=== PATIENT | female | born 1975 | race Caucasian/White ===

== ENCOUNTER 2017-01-30 13:41 | Emergency (ER) | payer SELFPAY ==
[2017-01-30 13:46] VITALS: BMI 20.9
[2017-01-30 14:20] LABS: BASOPHILS # (AUTO) 0.1 X10^3/uL (0.0-0.1); BASOPHILS % (AUTO) 1.2 % (0.2-1.0); EOSINOPHILS # (AUTO) 0.2 x10^3/uL (0.0-0.2); EOSINOPHILS % (AUTO) 1.5 % (0.9-2.9); HEMATOCRIT 47.1 % (36.0-47.0); HEMOGLOBIN 16.2 g/dL (12.0-16.0); LYMPHOCYTES % (AUTO) 19.8 % (21.0-51.0); MEAN CORPUSCULAR HGB CONC 34.4 g/dL (33.0-35.0); MEAN CORPUSCULAR VOLUME 87.1 fL (80.0-100.0); MEAN PLATELET VOLUME 7.6 fL (7.4-11.0); MONOCYTES # (AUTO) 0.6 x10^3/uL (0.3-0.8); MONOCYTES % (AUTO) 5.8 % (0.0-13.0); NEUTROPHILS # (AUTO) 7.2 x10^3/uL (2.2-4.8); NEUTROPHILS % (AUTO) 71.7 % (42.0-75.0); PLATELET COUNT 408 X10^3/uL (150.0-450.0); RED BLOOD COUNT 5.41 X10^6/uL (3.5-5.4); RED CELL DISTRIBUTION WIDTH 12.7 % (11.6-16.5)
[2017-01-30 14:32] LABS: ALANINE AMINOTRANSFERASE 18 Units/L (12-78); ALBUMIN 3.7 g/dL (3.4-5.0); ALKALINE PHOSPHATASE 69 Units/L (46-116); ASPARTATE AMINO TRANSFERASE 13 Units/L (15-37); BLOOD UREA NITROGEN 9 mg/dL (7-18); CALCIUM 9.9 mg/dL (8.5-10.1); CARBON DIOXIDE 31.2 mmol/L (21-32); CHLORIDE 105 mmol/L (98-107); COR NA(FOR HYPERGLY) 144 mmol/L (136-145); CREATININE 1.16 mg/dL (0.55-1.02); GLUCOSE 116 mg/dL (65-99); SODIUM 144 mmol/L (136-145); TOTAL PROTEIN 7.7 g/dL (6.4-8.2); eGFR BLACK RACES > 60 (>60); eGFR NON BLACK RACES 55 (>60)
[2017-01-30 14:34] LABS: BLOOD ALCOHOL < 3 mg/dL (0-19.9)
[2017-01-30 14:38] LABS: SALICYLATE < 2.8 mg/dL (2.8-20)
[2017-01-30 15:07] LABS: BILIRUBIN,URINE NEGATIVE (NEGATIVE); BLOOD/HEMOGLOBIN,URINE 1+ (NEGATIVE); GLUCOSE, URINE NEGATIVE (NEGATIVE); KETONES,URINE NEGATIVE (NEGATIVE); LEUKOCYTE ESTERASE ,URINE 1+ (NEGATIVE); NITRITES,URINE NEGATIVE (NEGATIVE); PH,URINE 6.5 (5.0 - 8.0); PROTEIN,URINE NEGATIVE (NEGATIVE); UROBILINOGEN,URINE NORMAL (NORMAL)
[2017-01-30 15:21] LABS: APPEARANCE,URINE SLIGHTLY HAZY (CLEAR); COLOR,URINE PALE YELLOW (YELLOW)
[2017-01-30 15:22] LABS: BACTERIA,URINE TRACE /HPF (NEGATIVE); RBC,URINE 0-2 /HPF (NEGATIVE); SQUAMOUS EPITHELIAL CELL,UR FEW /HPF (NEGATIVE)
[2017-01-30] MEDS ORDERED: LEVAQUIN TAB 750 MG PO SCH (16:00)
[2017-01-30] MEDS ORDERED: LEVAQUIN TAB 500 MG ONE (16:02)
[2017-01-30] MEDS ORDERED: LEVAQUIN TAB 250 MG ONE (16:02)
[2017-01-30 16:07] VITALS: BP 116/69
--- NOTE | 2017-01-30 16:10 | DR.GENAD ---
HPI - PCP Primary Care Physician: NFD - Complaint/Symptoms Chief Complaint Doctors Comments: Patient stated that she took some of her mothers medication in attempt to kill herself. She stated that she has done this in the past. Chief Complaint:: PATIENT STATED THAT SHE OVERDOSED ON SOME PILLS ABOUT 4 HOURS AGO SHE THINKS THAT IS MIGHT HAVE BEEN BLOOD PRESSURE MEDICINE. PATIENT STATED THAT SHE HAS BEEN GONE WITH SOME EUGENE THE LAST WEEK AND SHE DOESN'T KNOW WHAT HE HAS BEEN GIVING HER. 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 - Family History History of Family Medical Conditions: Yes Family Medical History: Hypertension - Social History Does patient currently use any type of tobacco product: Yes Have you used tobacco products in the last 12 months: Yes Type of Tobacco Use: Cigarettes Does any household member use tobacco: No Alcohol Use: None Do you use any recreational Drugs:: Yes (OPIATES, BENZO, METH) Lives With: Family Lives Where: Home - infectious screening In the last 2 months have you had wt loss of >10#?: NO Have you had fever, night sweats or hemotysis?: No Have you traveled outside the country in the last 6 months?: No Isolation: Standard ROS - Review of Systems Constitutional: No Symptoms Reported Eyes: No Symptoms Reported ENTM: No Symptoms Reported Respiratoy: No Symptoms Reported Cardiovascular: No Symptoms Reported Gastrointestinal/Abdominal: No Symptoms Reported Genitourinary: No Symptoms Reported Neurological: No Symptoms Reported Musculoskeletal: No Symptoms Reported Integumentary: No Symptoms Reported Hematologic/Lymphatic: No Symptoms Reported Endocrine: No Symptoms Reported Psychiatric: No Symptoms Reported All Other Systems: Reviewed and Negative PE - Vital Signs Vitals: Temperature 98.2 F Pulse Rate [Right Brachial] 88 Pulse Rate 105 Respiratory Rate 16 Blood Pressure [Left Arm] 129/81 Blood Pressure [Right Arm] 116/69 Blood Pressure 95/69 O2 Sat by Pulse Oximetry 100 - General Limitations: No Limitations General Appearance: Alert, In No Apparent Distress - Head Head Exam: Normal Inspection, Atraumatic - Eyes Eye exam: Normal Appearance, PERRL, EOMI - ENT ENT Exam: Normal Exam, Normal Oropharynx External Ear Exam: Normal External Inspection TM/Canal Exam: Bilateral Normal Nose Exam: Normal Nose Exam Mouth Exam: Normal Inspection Throat Exam: Normal Inspection - Neck Neck Exam: Normal Inspection, Full ROM - Chest Chest Inspection: Normal Inspection, Symmetric Chest Wall Rise - Respiratory Respiratory Exam: Normal Lung Sounds Bilat Respiratory Exam: Bilateral Clear to Auscultation - Cardiovascular Cardiovascular Exam: Regular Rate, Normal Rhythm - Abdominal Exam Abdominal Exam: Normal Inspection, Normal Bowel Sounds, Soft Abdominal Tenderness: negative: RUQ, RLQ, LUQ, LLQ, Epigastrium, Suprapubic, Diffuse, Mild, Moderate, Severe, Other - Extremities Extremities Exam: Normal Inspection, Full ROM - Back Back Exam: Normal Inspection - Neurologic Neurological Exam: Alert, Oriented X3, CN II-XII Intact - Psychiatric Psychiatric Exam: Flat Affect - Skin Skin Exam: Warm, Dry, Intact Course - Treatment Treatment: Mental Health was called to evaluate patient s/p medical clearance. Patient refused to left Mental Health termite control representative evaluate her. Patient left AMA after mental health left. - Reevaluation 1st: Unchanged ROR - Labs Reviewed Result Diagrams: 01/30/17 14:14 01/30/17 14:14 Laboratory: WBC 10.0 X10^3/uL (3.6-10.0) 01/30/17 14:14 RBC 5.41 X10^6/uL (3.5-5.4) H 01/30/17 14:14 Hgb 16.2 g/dL (12.0-16.0) H 01/30/17 14:14 Hct 47.1 % (36.0-47.0) H 01/30/17 14:14 MCV 87.1 fL (80.0-100.0) 01/30/17 14:14 MCH 30.0 pg (27.0-34.0) 01/30/17 14:14 MCHC 34.4 g/dL (33.0-35.0) 01/30/17 14:14 RDW 12.7 % (11.6-16.5) 01/30/17 14:14 Plt Count 408 X10^3/uL (150.0-450.0) 01/30/17 14:14 MPV 7.6 fL (7.4-11.0) 01/30/17 14:14 Neut % 71.7 % (42.0-75.0) 01/30/17 14:14 Lymph % 19.8 % (21.0-51.0) L 01/30/17 14:14 [place] % 5.8 % (0.0-13.0) 01/30/17 14:14 Eos % 1.5 % (0.9-2.9) 01/30/17 14:14 Baso % 1.2 % (0.2-1.0) H 01/30/17 14:14 Neut # 7.2 x10^3/uL (2.2-4.8) H 01/30/17 14:14 Lymph # 2.0 X10^3/uL (1.3-2.9) 01/30/17 14:14 [place] # 0.6 x10^3/uL (0.3-0.8) 01/30/17 14:14 Eos # 0.2 x10^3/uL (0.0-0.2) 01/30/17 14:14 Baso # 0.1 X10^3/uL (0.0-0.1) 01/30/17 14:14 Absolute Nucleated RBC 0.1 /100WBC 01/30/17 14:14 Sodium 144 mmol/L (136-145) 01/30/17 14:14 Corrected Sodium 144 mmol/L (136-145) 01/30/17 14:14 Potassium 3.7 mmol/L (3.5-5.1) 01/30/17 14:14 Chloride 105 mmol/L (98-107) 01/30/17 14:14 Carbon Dioxide 31.2 mmol/L (21-32) 01/30/17 14:14 BUN 9 mg/dL (7-18) 01/30/17 14:14 Creatinine 1.16 mg/dL (0.55-1.02) H 01/30/17 14:14 Est GFR (MDRD) Af Amer > 60 (>60) 01/30/17 14:14 Est GFR (MDRD) Non-Af 55 (>60) L 01/30/17 14:14 Glucose 116 mg/dL (65-99) H 01/30/17 14:14 Calcium 9.9 mg/dL (8.5-10.1) 01/30/17 14:14 Corrected Calcium TNP 01/30/17 14:14 Total Bilirubin 0.50 mg/dL (0.2-1.0) 01/30/17 14:14 AST 13 Units/L (15-37) L 01/30/17 14:14 ALT 18 Units/L (12-78) 01/30/17 14:14 Alkaline Phosphatase 69 Units/L (46-116) 01/30/17 14:14 Total Protein 7.7 g/dL (6.4-8.2) 01/30/17 14:14 Albumin 3.7 g/dL (3.4-5.0) 01/30/17 14:14 Globulin 4.0 g/dL (2.5-4.5) 01/30/17 14:14 Albumin/Globulin Ratio 0.9 Ratio (1.1-2.1) L 01/30/17 14:14 Specimen Type Clean catch urine 01/30/17 14:54 Urine Color Pale yellow (YELLOW) 01/30/17 14:54 Urine Appearance Slightly hazy (CLEAR) 01/30/17 14:54 Urine pH 6.5 (5.0 - 8.0) 01/30/17 14:54 Ur Specific [place] 1.010 (1.000-1.030) 01/30/17 14:54 Urine Protein Negative (NEGATIVE) 01/30/17 14:54 Urine Glucose (UA) Negative (NEGATIVE) 01/30/17 14:54 Urine Ketones Negative (NEGATIVE) 01/30/17 14:54 Urine Occult Blood 1+ (NEGATIVE) 01/30/17 14:54 Urine Nitrite Negative (NEGATIVE) 01/30/17 14:54 Urine Bilirubin Negative (NEGATIVE) 01/30/17 14:54 Urine Urobilinogen Normal (NORMAL) 01/30/17 14:54 Ur Leukocyte Esterase 1+ (NEGATIVE) 01/30/17 14:54 Urine RBC 0-2 /HPF (NEGATIVE) 01/30/17 14:54 Urine WBC 10-12 /HPF (NEGATIVE) 01/30/17 14:54 Ur Squamous Epith Cells Few /HPF (NEGATIVE) 01/30/17 14:54 Urine Bacteria Trace /HPF (NEGATIVE) 01/30/17 14:54 Ur Culture Indicated? Yes/culture set up 01/30/17 14:54 Salicylates < 2.8 mg/dL (2.8-20) L 01/30/17 14:14 Urine Opiates Screen Negative (NEG=<300) 01/30/17 14:54 Urine Methadone Screen Negative (NEG=<300) 01/30/17 14:54 Acetaminophen 0.0 ug/mL (10-30) L 01/30/17 14:14 Ur Barbiturates Screen Negative (NEG=<200) 01/30/17 14:54 Ur Phencyclidine Scrn Negative (NEG=<25) 01/30/17 14:54 Ur Amphetamines Screen Positive (NEG=<1000) A 01/30/17 14:54 U Benzodiazepines Scrn Negative (NEG=<200) 01/30/17 14:54 Urine Cocaine Screen Negative (NEG=<300) 01/30/17 14:54 U Marijuana (THC) Screen Positive (NEG=<50) A 01/30/17 14:54 Ethyl Alcohol mg/dL < 3 mg/dL (0-19.9) 01/30/17 14:14 - Diagnosis Discharge Problem: LEFT AMA - Discharge Plan Disposition: 07 AGAINST MEDICAL ADVICE Condition: Stable - Follow ups/Referrals Follow ups/Referrals: NFD,None [Primary Care Provider] - 3 days - Instructions
== END 2017-01-30 17:09 | disposition left against medical advice (07) ==
LOC: ER 13:41
DX: T50.901A Poisoning by unspecified drugs, medicaments and biological substances, accidental (unintentional), initial encounter (principal); B96.29 Other Escherichia coli [E. coli] as the cause of diseases classified elsewhere
CPT/HCPCS: 36415; 80053; 80307; 80320; 81001; 85025; 87086; 87088; 87186; 93005; 93010; 99283; G0434; G6038; G6039; G6040

== ENCOUNTER 2017-03-03 05:45 | Emergency (ER) | payer SELFPAY ==
[2017-03-03 05:54] VITALS: BP 108/79; BMI 20.9
[2017-03-03 06:29] LABS: BILIRUBIN,URINE 1+ (NEGATIVE); BLOOD/HEMOGLOBIN,URINE 3+ (NEGATIVE); GLUCOSE, URINE NEGATIVE (NEGATIVE); KETONES,URINE 1+ (NEGATIVE); LEUKOCYTE ESTERASE ,URINE 2+ (NEGATIVE); NITRITES,URINE NEGATIVE (NEGATIVE); PROTEIN,URINE 2+ (NEGATIVE); UROBILINOGEN,URINE 1+ (NORMAL)
[2017-03-03 06:39] LABS: APPEARANCE,URINE HAZY (CLEAR); COLOR,URINE YELLOW (YELLOW)
[2017-03-03 06:40] LABS: BACTERIA,URINE TRACE /HPF (NEGATIVE); MUCUS,URINE FEW /HPF (NEGATIVE); SQUAMOUS EPITHELIAL CELL,UR MODERATE /HPF (NEGATIVE)
--- NOTE | 2017-03-03 07:13 | DR.GENAD ---
HPI - PCP Primary Care Physician: NFD - Complaint/Symptoms Chief Complaint Doctors Comments: Headache and back pain. Patient request muscle relaxers. Chief Complaint:: HEADACHE, BACK PAIN, N/V/D FOR LAST 3 DAYS Self Treatment fo Chief Complaint: NONE - Nurses notes reviewed Nurses Notes Review: Yes - Source History Provided: Patient, EMS - Mode of Arrival Mode of Arrival: Ambulatory - Timing Onset of Chief Complaint: 02/27/17 Came on: Gradually - Duration Duration: Intermittent - Severity Severity: Moderate - Modifying Factors Worsens:: nothing Improves:: nothing - Associated Signs and Symptoms Associated Signs and Symptoms: Incresed urinary frequency, urgency and slight burning upon urination PMH - PMH Past Medical History: Yes Past Medical History: Anxiety, Depression Past 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: Yes 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: , 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 - Family History History of Family Medical Conditions: Yes Family Medical History: Hypertension - Social History Type of Tobacco Use: Cigarettes Alcohol Use: None Do you use any recreational Drugs:: Yes (OPIATES, BENZO, METH) Lives Where: Home - infectious screening Have you traveled outside the country in the last 6 months?: No Isolation: Standard ROS - Review of Systems Constitutional: No Symptoms Reported Respiratoy: No Symptoms Reported Cardiovascular: No Symptoms Reported Gastrointestinal/Abdominal: No Symptoms Reported Genitourinary: Dysuria, Frequency, Pain Neurological: Headache Musculoskeletal: No Symptoms Reported Integumentary: No Symptoms Reported Hematologic/Lymphatic: No Symptoms Reported Endocrine: No Symptoms Reported Psychiatric: No Symptoms Reported All Other Systems: Reviewed and Negative PE - Vital Signs Vitals: Temperature 98.0 F Pulse Rate 85 Respiratory Rate 16 Blood Pressure [Left Arm] 129/81 Blood Pressure [Right Arm] 116/69 Blood Pressure 108/79 O2 Sat by Pulse Oximetry 99 - General Limitations: No Limitations General Appearance: Alert, In No Apparent Distress, Anxious - Head Head Exam: Normal Inspection, Atraumatic - Eyes Eye exam: Normal Appearance, PERRL, EOMI - ENT ENT Exam: Normal Exam, Normal Oropharynx, Normal External Ear Exam, Mucous Membranes Moist - Neck Neck Exam: Normal Inspection, Full ROM, Trachea Midline - Chest Chest Inspection: Normal Inspection, Symmetric Chest Wall Rise - Respiratory Respiratory Exam: Normal Lung Sounds Bilat Respiratory Exam: Bilateral Clear to Auscultation - Cardiovascular Cardiovascular Exam: Regular Rate, Normal Rhythm, Normal Heart Sounds - Abdominal Exam Abdominal Exam: Normal Inspection, Normal Bowel Sounds - Extremities Extremities Exam: Normal Inspection, Full ROM - Back Back Exam: Normal Inspection, Full ROM - Neurologic Neurological Exam: Alert, Oriented X3, CN II-XII Intact - Psychiatric Psychiatric Exam: Anxious ROR - Labs Reviewed Laboratory: Specimen Type Clean catch urine 03/03/17 06:04 Urine Color Yellow (YELLOW) 03/03/17 06:04 Urine Appearance Hazy (CLEAR) 03/03/17 06:04 Urine pH 6.0 (5.0 - 8.0) 03/03/17 06:04 Ur Specific [place] 1.020 (1.000-1.030) 03/03/17 06:04 Urine Protein 2+ (NEGATIVE) 03/03/17 06:04 Urine Glucose (UA) Negative (NEGATIVE) 03/03/17 06:04 Urine Ketones 1+ (NEGATIVE) 03/03/17 06:04 Urine Occult Blood 3+ (NEGATIVE) 03/03/17 06:04 Urine Nitrite Negative (NEGATIVE) 03/03/17 06:04 Urine Bilirubin 1+ (NEGATIVE) 03/03/17 06:04 Urine Urobilinogen 1+ (NORMAL) 03/03/17 06:04 Ur Leukocyte Esterase 2+ (NEGATIVE) 03/03/17 06:04 Urine RBC 10-15 /HPF (NEGATIVE) 03/03/17 06:04 Urine WBC 20-25 /HPF (NEGATIVE) 03/03/17 06:04 Ur Squamous Epith Cells Moderate /HPF (NEGATIVE) 03/03/17 06:04 Urine Bacteria Trace /HPF (NEGATIVE) 03/03/17 06:04 Urine Mucus Few /HPF (NEGATIVE) 03/03/17 06:04 Ur Culture Indicated? Yes/culture set up 03/03/17 06:04 - Diagnosis Discharge Problem: Back pain - Discharge Plan Condition: Stable Prescriptions: Cephalexin [KEFLEX CAP 500 MG *] 500 mg PO TID #21 cap - Follow ups/Referrals Follow ups/Referrals: NFD,None [Primary Care Provider] - 3 days - Instructions Instructions: Back Exercises, Degenerative Disk Disease
[2017-03-03] MEDS ORDERED: TORADOL 60 MG VIAL IM ONE (07:49)
--- NOTE | 2017-03-03 07:49 | RAD ---
HISTORY: Back pain for 3 days Study: Three-view lumbar spine Comparison: November 04, 2015 Findings: Normal alignment of the lumbar spine is maintained. The posterior elements appear unremarkable in t heir appearance. There is again mild disc space narrowing at L5-S1. Remainder disc spaces are well maintained. No evidence for acute fracture can be identified. A metallic IUD is projected over the central pelvis. A metallic umbilical ring is also seen. IMPRESSION: Mild disc space narrowing at L5-S1. Remainder disc spaces are well maintained. No fracture or sublux ation is seen. Reported By:
[2017-03-03] MEDS ORDERED: TORADOL 60 MG VIAL ONE (08:03)
== END 2017-03-03 08:11 | disposition home or self-care (01) ==
LOC: ER 05:45
DX: M54.89 Other dorsalgia (principal)
CPT/HCPCS: 72100; 80307; 81001; 87086; 87088; 87186; 96372; 99282; G0434; J1885

== ENCOUNTER 2017-05-02 14:31 | Emergency (ER) | payer SELFPAY ==
[2017-05-02 14:54] VITALS: BMI 24.0
--- NOTE | 2017-05-02 14:54 | DR.GENAD ---
HPI - HPI Comment HPI Comment: PATIENT VOMITED. SHE TOOK METH 2 DAYS AGO. SHE IS SHAKY AND IS RESTLESS. NO FEVER. NO DYSURIA. HAVE SUBSTANCE ABUSE PROBLEM. - Complaint/Symptoms Chief Complaint Doctors Comments: PATIENT WANTING HELP TO GO OFF METH. SHE WANT TO , NO PLAN. NAUSEATED. 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 negative: Chills, Fever Eyes: No Symptoms Reported. negative: Eye Pain, Discharge ENTM: No Symptoms Reported, Nose Discharge, Nose Congestion. negative: Ear Pain , Throat Pain Respiratoy: Non-Productive Cough, Short of Breath. negative: Productive Cough, Wheezing, Hemoptysis Cardiovascular: Palpitations Gastrointestinal/Abdominal: Nausea, Vomiting Genitourinary: No Symptoms Reported Neurological: Anxiety, Depressed, Emotional Problems Musculoskeletal: Muscle Pain Integumentary: Dryness Hematologic/Lymphatic: No Symptoms Reported Endocrine: No Symptoms Reported All Other Systems: Reviewed and Negative <LAWRENCE KAUR - Last Filed: 05/03/17 00:27> PE - General Limitations: No Limitations General Appearance: Alert - Head Head Exam: Normal Inspection - Eyes Eye exam: Normal Appearance - ENT ENT Exam: Normal External Ear Exam External Ear Exam: Normal External Inspection TM/Canal Exam: Bilateral Normal Nose Exam: Normal Nose Exam Mouth Exam: Normal Inspection Throat Exam: Normal Inspection - Neck Neck Exam: Trachea Midline - Chest Chest Inspection: Symmetric Chest Wall Rise - Respiratory Respiratory Exam: Normal Lung Sounds Bilat Respiratory Exam: Bilateral Clear to Auscultation - Cardiovascular Cardiovascular Exam: Regular Rate, Normal Rhythm, Normal Heart Sounds - Abdominal Exam Abdominal Exam: Normal Bowel Sounds, Soft. negative: Tenderness - Extremities Extremities Exam: Normal Inspection - Back Back Exam: Normal Inspection - Neurologic Neurological Exam: Alert, Oriented X3 - Psychiatric Psychiatric Exam: Normal Affect, Normal Mood - Skin Skin Exam: Normal Color <VINCENTLAWRENCE - Last Filed: 05/03/17 00:27> - Vital Signs Vitals: Temperature 97.1 F Pulse Rate [Left Brachial] 112 Pulse Rate 85 Respiratory Rate 18 Blood Pressure [Left Arm] 118/77 Blood Pressure [Right Arm] 116/69 Blood Pressure 132/85 O2 Sat by Pulse Oximetry 98 MDM - Differential Diagnosis Differential Diagnosis: SUBSTANCE ABUSE DISORDER, NAUSE/VOMITING <LAWRENCE KAUR - Last Filed: 05/03/17 00:27> Course - Treatment Treatment: SEE ORDERS. - Consultation Consultation Comments: PATIENT IS MEDICALLY CLEAR. - Education/Counseling Education/Counseling: Patient, Education Educated On: Treatment, Diagnosis, Needs for Follow Up <LAWRENCE KAUR - Last Filed: 05/03/17 00:27> ROR - Labs Reviewed Laboratory Results Reviewed?: Yes Result Diagrams: 05/02/17 14:54 05/02/17 14:54 - EKG Rhythm: NSR (EKG NOTED) <LAWRENCE KAUR - Last Filed: 05/03/17 00:27> - Labs Reviewed Result Diagrams: 05/02/17 14:54 05/02/17 14:54 <CATHLEEN MATOS - Last Filed: 05/03/17 14:16> - Labs Reviewed Laboratory: WBC 6.0 X10^3/uL (3.6-10.0) 05/02/17 14:54 RBC 4.87 X10^6/uL (3.5-5.4) 05/02/17 14:54 Hgb 14.8 g/dL (12.0-16.0) 05/02/17 14:54 Hct 42.0 % (36.0-47.0) 05/02/17 14:54 MCV 86.2 fL (80.0-100.0) 05/02/17 14:54 MCH 30.4 pg (27.0-34.0) 05/02/17 14:54 MCHC 35.3 g/dL (33.0-35.0) H 05/02/17 14:54 RDW 12.8 % (11.6-16.5) 05/02/17 14:54 Plt Count 315 X10^3/uL (150.0-450.0) 05/02/17 14:54 MPV 7.9 fL (7.4-11.0) 05/02/17 14:54 Neut % 51.3 % (42.0-75.0) 05/02/17 14:54 Lymph % 38.6 % (21.0-51.0) 05/02/17 14:54 [place] % 6.6 % (0.0-13.0) 05/02/17 14:54 Eos % 2.2 % (0.9-2.9) 05/02/17 14:54 Baso % 1.3 % (0.2-1.0) H 05/02/17 14:54 Neut # 3.1 x10^3/uL (2.2-4.8) 05/02/17 14:54 Lymph # 2.3 X10^3/uL (1.3-2.9) 05/02/17 14:54 [place] # 0.4 x10^3/uL (0.3-0.8) 05/02/17 14:54 Eos # 0.1 x10^3/uL (0.0-0.2) 05/02/17 14:54 Baso # 0.1 X10^3/uL (0.0-0.1) 05/02/17 14:54 Absolute Nucleated RBC 0.1 /100WBC 05/02/17 14:54 Sodium 141 mmol/L (136-145) 05/02/17 14:54 Corrected Sodium TNP 05/02/17 14:54 Potassium 3.1 mmol/L (3.5-5.1) L 05/02/17 14:54 Chloride 107 mmol/L (98-107) 05/02/17 14:54 Carbon Dioxide 28.3 mmol/L (21-32) 05/02/17 14:54 BUN 5 mg/dL (7-18) L 05/02/17 14:54 Creatinine 0.87 mg/dL (0.55-1.02) 05/02/17 14:54 Est GFR (MDRD) Af Amer > 60 (>60) 05/02/17 14:54 Est GFR (MDRD) Non-Af > 60 (>60) 05/02/17 14:54 Glucose 100 mg/dL (65-99) H 05/02/17 14:54 Calcium 8.9 mg/dL (8.5-10.1) 05/02/17 14:54 Corrected Calcium TNP 05/02/17 14:54 Total Bilirubin 0.50 mg/dL (0.2-1.0) 05/02/17 14:54 AST 17 Units/L (15-37) 05/02/17 14:54 ALT 20 Units/L (12-78) 05/02/17 14:54 Alkaline Phosphatase 55 Units/L (46-116) 05/02/17 14:54 Total Protein 7.0 g/dL (6.4-8.2) 05/02/17 14:54 Albumin 3.6 g/dL (3.4-5.0) 05/02/17 14:54 Globulin 3.4 g/dL (2.5-4.5) 05/02/17 14:54 Albumin/Globulin Ratio 1.1 Ratio (1.1-2.1) 05/02/17 14:54 HCG, Qual Negative <10 mIU/mL 05/02/17 14:54 Specimen Type Clean catch urine 05/02/17 15:21 Urine Color Yellow (YELLOW) 05/02/17 15:21 Urine Appearance Slightly hazy (CLEAR) 05/02/17 15:21 Urine pH 7.0 (5.0 - 8.0) 05/02/17 15:21 Ur Specific [place] 1.015 (1.000-1.030) 05/02/17 15:21 Urine Protein 1+ (NEGATIVE) 05/02/17 15:21 Urine Glucose (UA) Negative (NEGATIVE) 05/02/17 15:21 Urine Ketones Negative (NEGATIVE) 05/02/17 15:21 Urine Occult Blood 1+ (NEGATIVE) 05/02/17 15:21 Urine Nitrite Negative (NEGATIVE) 05/02/17 15:21 Urine Bilirubin Negative (NEGATIVE) 05/02/17 15:21 Urine Urobilinogen Normal (NORMAL) 05/02/17 15:21 Ur Leukocyte Esterase 2+ (NEGATIVE) 05/02/17 15:21 Urine RBC 2-3 /HPF (NEGATIVE) 05/02/17 15:21 Urine WBC 5-6 /HPF (NEGATIVE) 05/02/17 15:21 Ur Squamous Epith Cells Few /HPF (NEGATIVE) 05/02/17 15:21 Ur Renal Epithelial Cell Rare /HPF (NEGATIVE) 05/02/17 15:21 Urine Bacteria Trace /HPF (NEGATIVE) 05/02/17 15:21 Urine Mucus Few /HPF (NEGATIVE) 05/02/17 15:21 Ur Culture Indicated? No/not indicated 05/02/17 15:21 Salicylates < 2.8 mg/dL (2.8-20) L 05/02/17 14:54 Urine Opiates Screen Negative (NEG=<300) 05/02/17 15:21 Urine Methadone Screen Negative (NEG=<300) 05/02/17 15:21 Acetaminophen < 0.0 ug/mL (10-30) L 05/02/17 14:54 Ur Barbiturates Screen Negative (NEG=<200) 05/02/17 15:21 Ur Phencyclidine Scrn Negative (NEG=<25) 05/02/17 15:21 Ur Amphetamines Screen Positive (NEG=<1000) A 05/02/17 15:21 U Benzodiazepines Scrn Positive (NEG=<200) A 05/02/17 15:21 Urine Cocaine Screen Negative (NEG=<300) 05/02/17 15:21 U Marijuana (THC) Screen Negative (NEG=<50) 05/02/17 15:21 Ethyl Alcohol mg/dL < 3 mg/dL (0-19.9) 05/02/17 14:54 <LAWRENCE KAUR - Last Filed: 05/03/17 00:27> <CATHLEEN MATOS - Last Filed: 05/03/17 14:16> - Diagnosis Discharge Problem: Substance abuse, Drug abuse and dependence, Amphetamine abuse - Discharge Plan Disposition: 07 AGAINST MEDICAL ADVICE Condition: Fair - Follow ups/Referrals Follow ups/Referrals: NFD,None [Primary Care Provider] - 3 days - Instructions
[2017-05-02 15:06] LABS: BASOPHILS # (AUTO) 0.1 X10^3/uL (0.0-0.1); BASOPHILS % (AUTO) 1.3 % (0.2-1.0); EOSINOPHILS # (AUTO) 0.1 x10^3/uL (0.0-0.2); EOSINOPHILS % (AUTO) 2.2 % (0.9-2.9); HEMOGLOBIN 14.8 g/dL (12.0-16.0); LYMPHOCYTES # (AUTO) 2.3 X10^3/uL (1.3-2.9); LYMPHOCYTES % (AUTO) 38.6 % (21.0-51.0); MEAN CORPUSCULAR HEMOGLOBIN 30.4 pg (27.0-34.0); MEAN CORPUSCULAR HGB CONC 35.3 g/dL (33.0-35.0); MEAN CORPUSCULAR VOLUME 86.2 fL (80.0-100.0); MEAN PLATELET VOLUME 7.9 fL (7.4-11.0); MONOCYTES # (AUTO) 0.4 x10^3/uL (0.3-0.8); MONOCYTES % (AUTO) 6.6 % (0.0-13.0); NEUTROPHILS # (AUTO) 3.1 x10^3/uL (2.2-4.8); NEUTROPHILS % (AUTO) 51.3 % (42.0-75.0); PLATELET COUNT 315 X10^3/uL (150.0-450.0); RED BLOOD COUNT 4.87 X10^6/uL (3.5-5.4); RED CELL DISTRIBUTION WIDTH 12.8 % (11.6-16.5)
[2017-05-02 15:21] LABS: ALANINE AMINOTRANSFERASE 20 Units/L (12-78); ALBUMIN 3.6 g/dL (3.4-5.0); ALKALINE PHOSPHATASE 55 Units/L (46-116); ASPARTATE AMINO TRANSFERASE 17 Units/L (15-37); BLOOD ALCOHOL < 3 mg/dL (0-19.9); BLOOD UREA NITROGEN 5 mg/dL (7-18); CALCIUM 8.9 mg/dL (8.5-10.1); CARBON DIOXIDE 28.3 mmol/L (21-32); CHLORIDE 107 mmol/L (98-107); CREATININE 0.87 mg/dL (0.55-1.02); SODIUM 141 mmol/L (136-145); eGFR BLACK RACES > 60 (>60); eGFR NON BLACK RACES > 60 (>60)
[2017-05-02 15:22] LABS: SERUM PREGNANCY TEST, QUAL NEGATIVE <10 mIU/mL
[2017-05-02 15:30] LABS: ACETAMINOPHEN < 0.0 ug/mL (10-30); SALICYLATE < 2.8 mg/dL (2.8-20)
[2017-05-02 15:39] LABS: BILIRUBIN,URINE NEGATIVE (NEGATIVE); BLOOD/HEMOGLOBIN,URINE 1+ (NEGATIVE); GLUCOSE, URINE NEGATIVE (NEGATIVE); KETONES,URINE NEGATIVE (NEGATIVE); LEUKOCYTE ESTERASE ,URINE 2+ (NEGATIVE); NITRITES,URINE NEGATIVE (NEGATIVE); PROTEIN,URINE 1+ (NEGATIVE); UROBILINOGEN,URINE NORMAL (NORMAL)
[2017-05-02] MEDS ORDERED: POTASSIUM CHLORIDE LIQ 20 MEQ UDC PO ONE (15:47)
[2017-05-02 15:55] LABS: APPEARANCE,URINE SLIGHTLY HAZY (CLEAR); BACTERIA,URINE TRACE /HPF (NEGATIVE); COLOR,URINE YELLOW (YELLOW); RENAL EPITHELIAL CELLS,URINE RARE /HPF (NEGATIVE); SQUAMOUS EPITHELIAL CELL,UR FEW /HPF (NEGATIVE)
[2017-05-02 15:56] LABS: MUCUS,URINE FEW /HPF (NEGATIVE)
[2017-05-02] MEDS ORDERED: POTASSIUM CHLORIDE LIQ 20 MEQ UDC ONE (16:43)
[2017-05-02] MEDS ORDERED: VISTARIL PO ONE ×2 (22:11→22:16)
[2017-05-02] MEDS ORDERED: FLEXERIL TAB 10 MG PO ONE (22:12)
[2017-05-02] MEDS ORDERED: FLEXERIL TAB 10 MG ONE (22:16)
[2017-05-03 12:45] VITALS: BP 118/77
== END 2017-05-03 14:05 | disposition left against medical advice (07) ==
LOC: ER 14:35
DX: F15.10 Other stimulant abuse, uncomplicated (principal)
CPT/HCPCS: 36415; 80053; 80307; 80320; 81001; 84703; 85025; 93005; 93010; 99283; 99284; 99285; Q0177; G0434; G6038; G6039; G6040

== ENCOUNTER 2017-05-29 12:33 | Emergency (ER) | payer SELFPAY ==
[2017-05-29 12:50] VITALS: BP 112/83; BMI 25.0
[2017-05-29 13:21] LABS: BASOPHILS # (AUTO) 0.1 X10^3/uL (0.0-0.1); EOSINOPHILS # (AUTO) 0.2 x10^3/uL (0.0-0.2); EOSINOPHILS % (AUTO) 1.8 % (0.9-2.9); HEMATOCRIT 43.7 % (36.0-47.0); HEMOGLOBIN 15.4 g/dL (12.0-16.0); LYMPHOCYTES # (AUTO) 2.3 X10^3/uL (1.3-2.9); LYMPHOCYTES % (AUTO) 26.8 % (21.0-51.0); MEAN CORPUSCULAR HGB CONC 35.3 g/dL (33.0-35.0); MEAN CORPUSCULAR VOLUME 87.8 fL (80.0-100.0); MEAN PLATELET VOLUME 8.1 fL (7.4-11.0); MONOCYTES # (AUTO) 0.7 x10^3/uL (0.3-0.8); MONOCYTES % (AUTO) 8.2 % (0.0-13.0); NEUTROPHILS # (AUTO) 5.4 x10^3/uL (2.2-4.8); NEUTROPHILS % (AUTO) 62.2 % (42.0-75.0); PLATELET COUNT 371 X10^3/uL (150.0-450.0); RED BLOOD COUNT 4.98 X10^6/uL (3.5-5.4); WHITE BLOOD COUNT 8.6 X10^3/uL (3.6-10.0)
[2017-05-29 13:29] LABS: BILIRUBIN,URINE NEGATIVE (NEGATIVE); BLOOD/HEMOGLOBIN,URINE 1+ (NEGATIVE); GLUCOSE, URINE NEGATIVE (NEGATIVE); KETONES,URINE 1+ (NEGATIVE); LEUKOCYTE ESTERASE ,URINE 3+ (NEGATIVE); NITRITES,URINE NEGATIVE (NEGATIVE); PROTEIN,URINE 1+ (NEGATIVE); UROBILINOGEN,URINE NORMAL (NORMAL)
[2017-05-29 13:30] LABS: ALANINE AMINOTRANSFERASE 23 Units/L (12-78); ALBUMIN 3.9 g/dL (3.4-5.0); ALKALINE PHOSPHATASE 60 Units/L (46-116); ASPARTATE AMINO TRANSFERASE 20 Units/L (15-37); BLOOD ALCOHOL < 3 mg/dL (0-19.9); BLOOD UREA NITROGEN 11 mg/dL (7-18); CALCIUM 9.4 mg/dL (8.5-10.1); CARBON DIOXIDE 28.2 mmol/L (21-32); CHLORIDE 103 mmol/L (98-107); CREATININE 0.84 mg/dL (0.55-1.02); SODIUM 137 mmol/L (136-145); TOTAL PROTEIN 7.8 g/dL (6.4-8.2); eGFR BLACK RACES > 60 (>60); eGFR NON BLACK RACES > 60 (>60)
[2017-05-29 13:32] LABS: SERUM PREGNANCY TEST, QUAL NEGATIVE <10 mIU/mL
[2017-05-29 13:36] LABS: SALICYLATE < 2.8 mg/dL (2.8-20)
[2017-05-29 13:43] LABS: AMORPHOUS SEDIMENT,UR 1+ /HPF (NEGATIVE); APPEARANCE,URINE CLOUDY (CLEAR); BACTERIA,URINE 2+ /HPF (NEGATIVE); COLOR,URINE YELLOW (YELLOW); MUCUS,URINE MANY /HPF (NEGATIVE); SQUAMOUS EPITHELIAL CELL,UR MODERATE /HPF (NEGATIVE)
--- NOTE | 2017-05-29 14:18 | DR.GENAD ---
HPI - PCP Primary Care Physician: NFD - Complaint/Symptoms Chief Complaint Doctors Comments: Patient was accepted to the [facility] in [place] a drug abuse detoxification center. Chief Complaint:: EMS WAS CALLED TO PT WALKING DOWN THE ROAD UPON ARRIVAL PT DENIES ANY PAIN WHEN ASKED AND SHE STATES ITS JUST ME I HURT ALL OVER.. Self Treatment fo Chief Complaint: PT STATES " I DON'T KNOW FICTION FROM REALITY ".. WHEN ASKED IF SHE WANTS TO HURT HER SELF OR ANYONE ELSE SHE STATES " YEAH ".. 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: No Have you traveled outside the country in the last 6 months?: No ROS - Review of Systems Eyes: No Symptoms Reported ENTM: No Symptoms Reported Respiratoy: No Symptoms Reported Cardiovascular: No Symptoms Reported Gastrointestinal/Abdominal: No Symptoms Reported Genitourinary: No Symptoms Reported Neurological: No Symptoms Reported Musculoskeletal: No Symptoms Reported Integumentary: No Symptoms Reported Hematologic/Lymphatic: No Symptoms Reported Endocrine: No Symptoms Reported Psychiatric: No Symptoms Reported All Other Systems: Reviewed and Negative PE - Vital Signs Vitals: Temperature 98.9 F Respiratory Rate 20 Blood Pressure [Left Arm] 118/77 Blood Pressure [Right Arm] 116/69 Blood Pressure 112/83 - General Limitations: Altered Mental Status (Flight of idease, under the influence of drugs.) General Appearance: Anxious - Head Head Exam: Normal Inspection, Atraumatic - Eyes Eye exam: Normal Appearance, PERRL, EOMI - ENT ENT Exam: Normal Exam External Ear Exam: Normal External Inspection TM/Canal Exam: Bilateral Normal Nose Exam: Normal Nose Exam, Sinus Tenderness Mouth Exam: Normal Inspection Throat Exam: Normal Inspection - Neck Neck Exam: Normal Inspection - Chest Chest Inspection: Normal Inspection - Respiratory Respiratory Exam: Normal Lung Sounds Bilat Respiratory Exam: Bilateral Clear to Auscultation - Cardiovascular Cardiovascular Exam: Regular Rate, Normal Rhythm - Abdominal Exam Abdominal Exam: Normal Inspection, Normal Bowel Sounds Abdominal Tenderness: negative: RUQ, RLQ, LUQ, LLQ, Epigastrium, Suprapubic, Diffuse, Mild, Moderate, Severe, Other - Extremities Extremities Exam: Normal Inspection, Full ROM - Back Back Exam: Normal Inspection, Full ROM - Psychiatric Psychiatric Exam: Agitated, Manic. negative: Homicidal Ideation, Suicidal Ideation - Skin Skin Exam: Warm, Dry Course - Treatment Treatment: The [facility] accepted patient as she was discharged ROR - Labs Reviewed Result Diagrams: 05/29/17 13:05 05/29/17 13:05 Laboratory: WBC 8.6 X10^3/uL (3.6-10.0) 05/29/17 13:05 RBC 4.98 X10^6/uL (3.5-5.4) 05/29/17 13:05 Hgb 15.4 g/dL (12.0-16.0) 05/29/17 13:05 Hct 43.7 % (36.0-47.0) 05/29/17 13:05 MCV 87.8 fL (80.0-100.0) 05/29/17 13:05 MCH 31.0 pg (27.0-34.0) 05/29/17 13:05 MCHC 35.3 g/dL (33.0-35.0) H 05/29/17 13:05 RDW 13.0 % (11.6-16.5) 05/29/17 13:05 Plt Count 371 X10^3/uL (150.0-450.0) 05/29/17 13:05 MPV 8.1 fL (7.4-11.0) 05/29/17 13:05 Neut % 62.2 % (42.0-75.0) 05/29/17 13:05 Lymph % 26.8 % (21.0-51.0) 05/29/17 13:05 [place] % 8.2 % (0.0-13.0) 05/29/17 13:05 Eos % 1.8 % (0.9-2.9) 05/29/17 13:05 Baso % 1.0 % (0.2-1.0) 05/29/17 13:05 Neut # 5.4 x10^3/uL (2.2-4.8) H 05/29/17 13:05 Lymph # 2.3 X10^3/uL (1.3-2.9) 05/29/17 13:05 [place] # 0.7 x10^3/uL (0.3-0.8) 05/29/17 13:05 Eos # 0.2 x10^3/uL (0.0-0.2) 05/29/17 13:05 Baso # 0.1 X10^3/uL (0.0-0.1) 05/29/17 13:05 Absolute Nucleated RBC 0.0 /100WBC 05/29/17 13:05 Sodium 137 mmol/L (136-145) 05/29/17 13:05 Corrected Sodium TNP 05/29/17 13:05 Potassium 3.7 mmol/L (3.5-5.1) 05/29/17 13:05 Chloride 103 mmol/L (98-107) 05/29/17 13:05 Carbon Dioxide 28.2 mmol/L (21-32) 05/29/17 13:05 BUN 11 mg/dL (7-18) 05/29/17 13:05 Creatinine 0.84 mg/dL (0.55-1.02) 05/29/17 13:05 Est GFR (MDRD) Af Amer > 60 (>60) 05/29/17 13:05 Est GFR (MDRD) Non-Af > 60 (>60) 05/29/17 13:05 Glucose 82 mg/dL (65-99) 05/29/17 13:05 Calcium 9.4 mg/dL (8.5-10.1) 05/29/17 13:05 Corrected Calcium TNP 05/29/17 13:05 Total Bilirubin 0.90 mg/dL (0.2-1.0) 05/29/17 13:05 AST 20 Units/L (15-37) 05/29/17 13:05 ALT 23 Units/L (12-78) 05/29/17 13:05 Alkaline Phosphatase 60 Units/L (46-116) 05/29/17 13:05 Total Protein 7.8 g/dL (6.4-8.2) 05/29/17 13:05 Albumin 3.9 g/dL (3.4-5.0) 05/29/17 13:05 Globulin 3.9 g/dL (2.5-4.5) 05/29/17 13:05 Albumin/Globulin Ratio 1.0 Ratio (1.1-2.1) L 05/29/17 13:05 HCG, Qual Negative <10 mIU/mL 05/29/17 13:05 Specimen Type Clean catch urine 05/29/17 13:01 Urine Color Yellow (YELLOW) 05/29/17 13:01 Urine Appearance Cloudy (CLEAR) 05/29/17 13:01 Urine pH 5.0 (5.0 - 8.0) 05/29/17 13:01 Ur Specific [place] 1.020 (1.000-1.030) 05/29/17 13:01 Urine Protein 1+ (NEGATIVE) 05/29/17 13:01 Urine Glucose (UA) Negative (NEGATIVE) 05/29/17 13:01 Urine Ketones 1+ (NEGATIVE) 05/29/17 13:01 Urine Occult Blood 1+ (NEGATIVE) 05/29/17 13:01 Urine Nitrite Negative (NEGATIVE) 05/29/17 13:01 Urine Bilirubin Negative (NEGATIVE) 05/29/17 13:01 Urine Urobilinogen Normal (NORMAL) 05/29/17 13:01 Ur Leukocyte Esterase 3+ (NEGATIVE) 05/29/17 13:01 Urine RBC 5-7 /HPF (NEGATIVE) 05/29/17 13:01 Urine WBC 15-20 /HPF (NEGATIVE) 05/29/17 13:01 Ur Squamous Epith Cells Moderate /HPF (NEGATIVE) 05/29/17 13:01 Amorphous Sediment 1+ /HPF (NEGATIVE) 05/29/17 13:01 Urine Bacteria 2+ /HPF (NEGATIVE) 05/29/17 13:01 Urine Mucus Many /HPF (NEGATIVE) 05/29/17 13:01 Ur Culture Indicated? Yes/culture set up 05/29/17 13:01 Salicylates < 2.8 mg/dL (2.8-20) L 05/29/17 13:05 Urine Opiates Screen Negative (NEG=<300) 05/29/17 13:01 Urine Methadone Screen Negative (NEG=<300) 05/29/17 13:01 Acetaminophen 0.0 ug/mL (10-30) L 05/29/17 13:05 Ur Barbiturates Screen Negative (NEG=<200) 05/29/17 13:01 Ur Phencyclidine Scrn Negative (NEG=<25) 05/29/17 13:01 Ur Amphetamines Screen Positive (NEG=<1000) A 05/29/17 13:01 U Benzodiazepines Scrn Negative (NEG=<200) 05/29/17 13:01 Urine Cocaine Screen Negative (NEG=<300) 05/29/17 13:01 U Marijuana (THC) Screen Negative (NEG=<50) 05/29/17 13:01 Ethyl Alcohol mg/dL < 3 mg/dL (0-19.9) 05/29/17 13:05 - Diagnosis Discharge Problem: Drug abuse, amphetamine type - Discharge Plan Disposition: 01 HOME, SELF-CARE Condition: Stable - Follow ups/Referrals Follow ups/Referrals: NFD,None [Primary Care Provider] - 3 days - Instructions Instructions: Borderline Personality Disorder
== END 2017-05-29 14:03 | disposition home or self-care (01) ==
LOC: ER 12:39
DX: F15.10 Other stimulant abuse, uncomplicated (principal)
CPT/HCPCS: 36415; 80053; 80307; 80320; 81001; 84703; 85025; 87086; 93005; 93010; 99283; 99285; G0434; G6038; G6039; G6040

== ENCOUNTER 2017-06-01 09:22 | Emergency (ER) | payer SELFPAY ==
[2017-06-01 09:35] VITALS: BMI 25.8
[2017-06-01 09:52] LABS: BASOPHILS # (AUTO) 0.1 X10^3/uL (0.0-0.1); BASOPHILS % (AUTO) 0.6 % (0.2-1.0); EOSINOPHILS # (AUTO) 0.1 x10^3/uL (0.0-0.2); EOSINOPHILS % (AUTO) 1.6 % (0.9-2.9); HEMATOCRIT 42.2 % (36.0-47.0); HEMOGLOBIN 14.4 g/dL (12.0-16.0); LYMPHOCYTES # (AUTO) 1.5 X10^3/uL (1.3-2.9); LYMPHOCYTES % (AUTO) 17.7 % (21.0-51.0); MEAN CORPUSCULAR HEMOGLOBIN 30.4 pg (27.0-34.0); MEAN CORPUSCULAR HGB CONC 34.1 g/dL (33.0-35.0); MEAN CORPUSCULAR VOLUME 89.3 fL (80.0-100.0); MEAN PLATELET VOLUME 8.3 fL (7.4-11.0); MONOCYTES # (AUTO) 0.5 x10^3/uL (0.3-0.8); MONOCYTES % (AUTO) 6.4 % (0.0-13.0); NEUTROPHILS # (AUTO) 6.1 x10^3/uL (2.2-4.8); NEUTROPHILS % (AUTO) 73.7 % (42.0-75.0); PLATELET COUNT 313 X10^3/uL (150.0-450.0); RED BLOOD COUNT 4.73 X10^6/uL (3.5-5.4); WHITE BLOOD COUNT 8.3 X10^3/uL (3.6-10.0)
[2017-06-01 10:00] LABS: BILIRUBIN,URINE NEGATIVE (NEGATIVE); BLOOD/HEMOGLOBIN,URINE 2+ (NEGATIVE); GLUCOSE, URINE NEGATIVE (NEGATIVE); KETONES,URINE NEGATIVE (NEGATIVE); LEUKOCYTE ESTERASE ,URINE 3+ (NEGATIVE); NITRITES,URINE NEGATIVE (NEGATIVE); PROTEIN,URINE NEGATIVE (NEGATIVE); UROBILINOGEN,URINE NORMAL (NORMAL)
[2017-06-01 10:02] LABS: SERUM PREGNANCY TEST, QUAL NEGATIVE <10 mIU/mL
[2017-06-01 10:03] LABS: ALANINE AMINOTRANSFERASE 18 Units/L (12-78); ALBUMIN 3.4 g/dL (3.4-5.0); ALKALINE PHOSPHATASE 52 Units/L (46-116); ASPARTATE AMINO TRANSFERASE 11 Units/L (15-37); BLOOD ALCOHOL < 3 mg/dL (0-19.9); BLOOD UREA NITROGEN 15 mg/dL (7-18); CALCIUM 8.9 mg/dL (8.5-10.1); CARBON DIOXIDE 27.9 mmol/L (21-32); CHLORIDE 107 mmol/L (98-107); COR NA(FOR HYPERGLY) 140 mmol/L (136-145); CREATININE 0.98 mg/dL (0.55-1.02); SODIUM 139 mmol/L (136-145); TOTAL PROTEIN 7.2 g/dL (6.4-8.2); eGFR BLACK RACES > 60 (>60); eGFR NON BLACK RACES > 60 (>60)
[2017-06-01 10:08] LABS: SALICYLATE < 2.8 mg/dL (2.8-20)
[2017-06-01 10:19] LABS: APPEARANCE,URINE CLEAR (CLEAR); COLOR,URINE PALE YELLOW (YELLOW); SQUAMOUS EPITHELIAL CELL,UR MODERATE /HPF (NEGATIVE)
[2017-06-01 10:20] LABS: BACTERIA,URINE TRACE /HPF (NEGATIVE); TRICHOMONAS,URINE MODERATE /HPF (NEGATIVE)
--- NOTE | 2017-06-01 15:52 | DR.GENAD ---
HPI - PCP Primary Care Physician: nfd - HPI Comment HPI Comment: PATIENT DENIES PAIN. NO N/V/D OR FEVER. HAVE SUBSTANCE ABUSE DISORDER. HER DRJohnnie WANT HER TO GO IN REHAB. PATIENT WILLING. - Complaint/Symptoms Chief Complaint Doctors Comments: PATIENT SENT TO ED FOR PLACEMENT IN REHARB BY HER PSYCHISTRIST WITH 10-13 FORM SIGN BY HIM. Chief Complaint:: patient was [facility] handcuffs. patient was at the [facility] and was showing erractic behavior so dr jassi eng signed a 1013. pt was brought here for us to find placement for her. 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 - Family History History of Family Medical Conditions: No Family Medical History: Hypertension - Social History Does patient currently use any type of tobacco product: Yes Have you used tobacco products in the last 12 months: Yes Type of Tobacco Use: Cigarettes How many years tobacco product used: 5 Do you use any recreational Drugs:: Yes (ANYTHING SHE CAN FIND.) Lives With: Family Lives Where: Home - infectious screening In the last 2 months have you had wt loss of >10#?: NO Have you had fever, night sweats or hemotysis?: No Have you traveled outside the country in the last 6 months?: No Isolation: Standard ROS - Review of Systems Constitutional: No Symptoms Reported Eyes: No Symptoms Reported ENTM: No Symptoms Reported Respiratoy: No Symptoms Reported Cardiovascular: No Symptoms Reported Gastrointestinal/Abdominal: No Symptoms Reported Genitourinary: No Symptoms Reported Neurological: No Symptoms Reported Musculoskeletal: No Symptoms Reported Integumentary: No Symptoms Reported Hematologic/Lymphatic: No Symptoms Reported Endocrine: No Symptoms Reported All Other Systems: Reviewed and Negative PE - Vital Signs Vitals: Temperature 99 F Pulse Rate [Left Brachial] 90 Pulse Rate 79 Respiratory Rate 18 Blood Pressure [Left Arm] 118/89 Blood Pressure [Right Arm] 118/60 Blood Pressure 138/63 O2 Sat by Pulse Oximetry 100 - General Limitations: No Limitations General Appearance: Alert - Head Head Exam: Normal Inspection - Eyes Eye exam: Normal Appearance - ENT ENT Exam: Normal External Ear Exam External Ear Exam: Normal External Inspection TM/Canal Exam: Bilateral Normal Nose Exam: Normal Nose Exam Mouth Exam: Normal Inspection Throat Exam: Normal Inspection - Neck Neck Exam: Normal Inspection - Chest Chest Inspection: Symmetric Chest Wall Rise - Respiratory Respiratory Exam: Normal Lung Sounds Bilat Respiratory Exam: Bilateral Clear to Auscultation - Cardiovascular Cardiovascular Exam: Regular Rate, Normal Rhythm, Normal Heart Sounds - Abdominal Exam Abdominal Exam: Normal Bowel Sounds, Soft. negative: Tenderness - Extremities Extremities Exam: Normal Inspection - Back Back Exam: Normal Inspection - Neurologic Neurological Exam: Alert, Oriented X3, CN II-XII Intact, Normal Gait, Reflexes Normal. negative: Motor Sensory Deficit - Psychiatric Psychiatric Exam: Anxious, Other (SUBSTANCE ABUSE DISORDER.) - Skin Skin Exam: Normal Color MDM - Differential Diagnosis Differential Diagnosis: DEPRESSION, SUBSTANCE ABUSE DISORDER. Course - Treatment Treatment: SEE ORDERS. - Consultation Consultation Comments: SPOKE WITH DR. STUART. HE WISH FOR PATIENT TO BE PLACE IN [facility] FOR FURTHER EV[facility]UATION. [facility] ACCEPTED PATIENT FOR TRANSFER, DR. ORNELAS. - Education/Counseling Education/Counseling: Patient, Education Educated On: Diagnosis, Needs for Follow Up ROR - Labs Reviewed Laboratory Results Reviewed?: Yes Result Diagrams: 06/01/17 09:41 06/01/17 09:41 Laboratory: WBC 8.3 X10^3/uL (3.6-10.0) 06/01/17 09:41 RBC 4.73 X10^6/uL (3.5-5.4) 06/01/17 09:41 Hgb 14.4 g/dL (12.0-16.0) 06/01/17 09:41 Hct 42.2 % (36.0-47.0) 06/01/17 09:41 MCV 89.3 fL (80.0-100.0) 06/01/17 09:41 MCH 30.4 pg (27.0-34.0) 06/01/17 09:41 MCHC 34.1 g/dL (33.0-35.0) 06/01/17 09:41 RDW 13.0 % (11.6-16.5) 06/01/17 09:41 Plt Count 313 X10^3/uL (150.0-450.0) 06/01/17 09:41 MPV 8.3 fL (7.4-11.0) 06/01/17 09:41 Neut % 73.7 % (42.0-75.0) 06/01/17 09:41 Lymph % 17.7 % (21.0-51.0) L 06/01/17 09:41 [place] % 6.4 % (0.0-13.0) 06/01/17 09:41 Eos % 1.6 % (0.9-2.9) 06/01/17 09:41 Baso % 0.6 % (0.2-1.0) 06/01/17 09:41 Neut # 6.1 x10^3/uL (2.2-4.8) H 06/01/17 09:41 Lymph # 1.5 X10^3/uL (1.3-2.9) 06/01/17 09:41 [place] # 0.5 x10^3/uL (0.3-0.8) 06/01/17 09:41 Eos # 0.1 x10^3/uL (0.0-0.2) 06/01/17 09:41 Baso # 0.1 X10^3/uL (0.0-0.1) 06/01/17 09:41 Absolute Nucleated RBC 0.0 /100WBC 06/01/17 09:41 Sodium 139 mmol/L (136-145) 06/01/17 09:41 Corrected Sodium 140 mmol/L (136-145) 06/01/17 09:41 Potassium 3.8 mmol/L (3.5-5.1) 06/01/17 09:41 Chloride 107 mmol/L (98-107) 06/01/17 09:41 Carbon Dioxide 27.9 mmol/L (21-32) 06/01/17 09:41 BUN 15 mg/dL (7-18) 06/01/17 09:41 Creatinine 0.98 mg/dL (0.55-1.02) 06/01/17 09:41 Est GFR (MDRD) Af Amer > 60 (>60) 06/01/17 09:41 Est GFR (MDRD) Non-Af > 60 (>60) 06/01/17 09:41 Glucose 125 mg/dL (65-99) H 06/01/17 09:41 Calcium 8.9 mg/dL (8.5-10.1) 06/01/17 09:41 Corrected Calcium TNP 06/01/17 09:41 Total Bilirubin 0.20 mg/dL (0.2-1.0) 06/01/17 09:41 AST 11 Units/L (15-37) L 06/01/17 09:41 ALT 18 Units/L (12-78) 06/01/17 09:41 Alkaline Phosphatase 52 Units/L (46-116) 06/01/17 09:41 Total Protein 7.2 g/dL (6.4-8.2) 06/01/17 09:41 Albumin 3.4 g/dL (3.4-5.0) 06/01/17 09:41 Globulin 3.8 g/dL (2.5-4.5) 06/01/17 09:41 Albumin/Globulin Ratio 0.9 Ratio (1.1-2.1) L 06/01/17 09:41 HCG, Qual Negative <10 mIU/mL 06/01/17 09:41 Specimen Type Random urine 06/01/17 09:46 Urine Color Pale yellow (YELLOW) 06/01/17 09:46 Urine Appearance Clear (CLEAR) 06/01/17 09:46 Urine pH 5.0 (5.0 - 8.0) 06/01/17 09:46 Ur Specific [place] 1.015 (1.000-1.030) 06/01/17 09:46 Urine Protein Negative (NEGATIVE) 06/01/17 09:46 Urine Glucose (UA) Negative (NEGATIVE) 06/01/17 09:46 Urine Ketones Negative (NEGATIVE) 06/01/17 09:46 Urine Occult Blood 2+ (NEGATIVE) 06/01/17 09:46 Urine Nitrite Negative (NEGATIVE) 06/01/17 09:46 Urine Bilirubin Negative (NEGATIVE) 06/01/17 09:46 Urine Urobilinogen Normal (NORMAL) 06/01/17 09:46 Ur Leukocyte Esterase 3+ (NEGATIVE) 06/01/17 09:46 Urine RBC 3-6 /HPF (NEGATIVE) 06/01/17 09:46 Urine WBC 0-3 /HPF (NEGATIVE) 06/01/17 09:46 Ur Squamous Epith Cells Moderate /HPF (NEGATIVE) 06/01/17 09:46 Urine Bacteria Trace /HPF (NEGATIVE) 06/01/17 09:46 Urine Trichomonas Moderate /HPF (NEGATIVE) 06/01/17 09:46 Ur Culture Indicated? No/not indicated 06/01/17 09:46 Salicylates < 2.8 mg/dL (2.8-20) L 06/01/17 09:41 Urine Opiates Screen Negative (NEG=<300) 06/01/17 09:46 Urine Methadone Screen Negative (NEG=<300) 06/01/17 09:46 Acetaminophen 0.0 ug/mL (10-30) L 06/01/17 09:41 Ur Barbiturates Screen Negative (NEG=<200) 06/01/17 09:46 Ur Phencyclidine Scrn Negative (NEG=<25) 06/01/17 09:46 Ur Amphetamines Screen Negative (NEG=<1000) 06/01/17 09:46 U Benzodiazepines Scrn Negative (NEG=<200) 06/01/17 09:46 Urine Cocaine Screen Negative (NEG=<300) 06/01/17 09:46 U Marijuana (THC) Screen Negative (NEG=<50) 06/01/17 09:46 Ethyl Alcohol mg/dL < 3 mg/dL (0-19.9) 06/01/17 09:41 - EKG Rhythm: NSR - Diagnosis Discharge Problem: Drug abuse and dependence Bipolar disorder Qualifiers: Active/Remission status: remission status unspecified Qualified Code(s): F31.9 - Bipolar disorder, unspecified Depression Qualifiers: Depression Type: major depressive disorder Major depression recurrence: recurrent Active/Remission status: remission status unspecified Qualified Code(s ): F33.9 - Major depressive disorder, recurrent, unspecified - Discharge Plan Disposition: 65 XFER TO PSYCH HOSP/UNIT Condition: Stable - Follow ups/Referrals Follow ups/Referrals: NFD,None [Primary Care Provider] - 3 days - Instructions
[2017-06-01 17:09] VITALS: BP 118/89
== END 2017-06-01 18:36 ==
LOC: ER 09:29
DX: F19.10 Other psychoactive substance abuse, uncomplicated (principal); F31.89 Other bipolar disorder; F33.9 Major depressive disorder, recurrent, unspecified
CPT/HCPCS: 36415; 80053; 80307; 80320; 81001; 84703; 85025; 93005; 93010; 99284; 99285; G0434; G6038; G6039; G6040

== ENCOUNTER 2017-06-13 12:42 | Emergency (ER) | payer SELFPAY ==
[2017-06-13 13:06] VITALS: BMI 23.3
--- NOTE | 2017-06-13 13:20 | DR.GENAD ---
HPI - HPI Comment HPI Comment: PATIENT DENIES CHEST PAIN. NO NAUSEA OR VOMITING. NO FEVER. - Complaint/Symptoms Chief Complaint Doctors Comments: PATIENT ON METH BINGE TIMES 4 DAYS. WAS SITTING IN THE YARD EATING GRASS. Chief Complaint:: PT WAS BROUGHT IN BY EMS, FRIEND CALLED EMS AND STATED PT WAS INTOXICATED, OUTSIDE SITTING IN YARD TRYING TO EAT GRASS. PT STATES SHE HAS TAKEN XANAX X 4 TODAY. 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 - Family History History of Family Medical Conditions: Yes Family Medical History: Hypertension - Social History Does patient currently use any type of tobacco product: No Have you used tobacco products in the last 12 months: No Type of Tobacco Use: None Does any household member use tobacco: No Alcohol Use: Occasionally Do you use any recreational Drugs:: Yes Lives With: Other Lives Where: WITH FRIENDS - infectious screening In the last 2 months have you had wt loss of >10#?: NO Have you had fever, night sweats or hemotysis?: No Have you traveled outside the country in the last 6 months?: No Isolation: Standard ROS - Review of Systems Constitutional: No Symptoms Reported Eyes: No Symptoms Reported ENTM: No Symptoms Reported Respiratoy: No Symptoms Reported Cardiovascular: No Symptoms Reported Gastrointestinal/Abdominal: No Symptoms Reported Genitourinary: No Symptoms Reported Neurological: No Symptoms Reported Musculoskeletal: No Symptoms Reported Integumentary: No Symptoms Reported Hematologic/Lymphatic: No Symptoms Reported Endocrine: No Symptoms Reported All Other Systems: Reviewed and Negative PE - Vital Signs Vitals: Temperature 97.8 F Pulse Rate [Right Brachial] 97 Pulse Rate 102 Respiratory Rate 20 Blood Pressure [Left Arm] 118/89 Blood Pressure [Right Arm] 127/82 Blood Pressure 125/79 O2 Sat by Pulse Oximetry 97 - General Limitations: No Limitations General Appearance: Alert - Head Head Exam: Normal Inspection - Eyes Eye exam: Normal Appearance - ENT ENT Exam: Normal External Ear Exam External Ear Exam: Normal External Inspection TM/Canal Exam: Bilateral Normal Nose Exam: Normal Nose Exam Mouth Exam: Normal Inspection Throat Exam: Normal Inspection - Neck Neck Exam: Normal Inspection - Chest Chest Inspection: Symmetric Chest Wall Rise - Respiratory Respiratory Exam: Normal Lung Sounds Bilat Respiratory Exam: Bilateral Clear to Auscultation - Cardiovascular Cardiovascular Exam: Regular Rate, Normal Rhythm, Normal Heart Sounds - Abdominal Exam Abdominal Exam: Normal Bowel Sounds, Soft. negative: Tenderness - Extremities Extremities Exam: Normal Inspection - Back Back Exam: Normal Inspection - Neurologic Neurological Exam: Alert, Oriented X3 - Psychiatric Psychiatric Exam: Normal Affect, Normal Mood - Skin Skin Exam: Normal Color MDM - Differential Diagnosis Differential Diagnosis: SUBSTANCE ABUSE. Course - Treatment Treatment: SEE ORDERS. PATIENT WISH TO GO TO REHAB. SHE LEFT AMA WHILE WE WERE IN THE PROCESS OF FINDING A FACILITY THAT WILL TAKE HER TODAY. - Consultation Consultation Comments: PATIENT MEDICALLY CLEAR. MENTAL HEALTH CONSULT. - Education/Counseling Education/Counseling: Patient, Education Educated On: Diagnosis ROR - Labs Reviewed Laboratory Results Reviewed?: Yes Result Diagrams: 06/13/17 13:34 06/13/17 13:34 Laboratory: WBC 7.9 X10^3/uL (3.6-10.0) 06/13/17 13:34 RBC 5.05 X10^6/uL (3.5-5.4) 06/13/17 13:34 Hgb 15.5 g/dL (12.0-16.0) 06/13/17 13:34 Hct 45.0 % (36.0-47.0) 06/13/17 13:34 MCV 89.0 fL (80.0-100.0) 06/13/17 13:34 MCH 30.6 pg (27.0-34.0) 06/13/17 13:34 MCHC 34.4 g/dL (33.0-35.0) 06/13/17 13:34 RDW 13.1 % (11.6-16.5) 06/13/17 13:34 Plt Count 342 X10^3/uL (150.0-450.0) 06/13/17 13:34 MPV 7.9 fL (7.4-11.0) 06/13/17 13:34 Neut % 68.7 % (42.0-75.0) 06/13/17 13:34 Lymph % 21.2 % (21.0-51.0) 06/13/17 13:34 [place] % 8.9 % (0.0-13.0) 06/13/17 13:34 Eos % 0.3 % (0.9-2.9) L 06/13/17 13:34 Baso % 0.9 % (0.2-1.0) 06/13/17 13:34 Neut # 5.4 x10^3/uL (2.2-4.8) H 06/13/17 13:34 Lymph # 1.7 X10^3/uL (1.3-2.9) 06/13/17 13:34 [place] # 0.7 x10^3/uL (0.3-0.8) 06/13/17 13:34 Eos # 0.0 x10^3/uL (0.0-0.2) 06/13/17 13:34 Baso # 0.1 X10^3/uL (0.0-0.1) 06/13/17 13:34 Absolute Nucleated RBC 0.0 /100WBC 06/13/17 13:34 Sodium 141 mmol/L (136-145) 06/13/17 13:34 Corrected Sodium 142 mmol/L (136-145) 06/13/17 13:34 Potassium 3.4 mmol/L (3.5-5.1) L 06/13/17 13:34 Chloride 104 mmol/L (98-107) 06/13/17 13:34 Carbon Dioxide 27.1 mmol/L (21-32) 06/13/17 13:34 BUN 8 mg/dL (7-18) 06/13/17 13:34 Creatinine 0.91 mg/dL (0.55-1.02) 06/13/17 13:34 Est GFR (MDRD) Af Amer > 60 (>60) 06/13/17 13:34 Est GFR (MDRD) Non-Af > 60 (>60) 06/13/17 13:34 Glucose 121 mg/dL (65-99) H 06/13/17 13:34 Calcium 8.9 mg/dL (8.5-10.1) 06/13/17 13:34 Corrected Calcium TNP 06/13/17 13:34 Total Bilirubin 0.60 mg/dL (0.2-1.0) 06/13/17 13:34 AST 17 Units/L (15-37) 06/13/17 13:34 ALT 25 Units/L (12-78) 06/13/17 13:34 Alkaline Phosphatase 65 Units/L (46-116) 06/13/17 13:34 Total Protein 8.0 g/dL (6.4-8.2) 06/13/17 13:34 Albumin 4.0 g/dL (3.4-5.0) 06/13/17 13:34 Globulin 4.0 g/dL (2.5-4.5) 06/13/17 13:34 Albumin/Globulin Ratio 1.0 Ratio (1.1-2.1) L 06/13/17 13:34 Salicylates 3.0 mg/dL (2.8-20) 06/13/17 13:34 Urine Opiates Screen Negative (NEG=<300) 06/13/17 13:19 Urine Methadone Screen Negative (NEG=<300) 06/13/17 13:19 Acetaminophen 0.0 ug/mL (10-30) L 06/13/17 13:34 Ur Barbiturates Screen Negative (NEG=<200) 06/13/17 13:19 Ur Phencyclidine Scrn Negative (NEG=<25) 06/13/17 13:19 Ur Amphetamines Screen Positive (NEG=<1000) A 06/13/17 13:19 U Benzodiazepines Scrn Negative (NEG=<200) 06/13/17 13:19 Urine Cocaine Screen Negative (NEG=<300) 06/13/17 13:19 U Marijuana (THC) Screen Negative (NEG=<50) 06/13/17 13:19 Ethyl Alcohol mg/dL < 3 mg/dL (0-19.9) 06/13/17 13:34 - EKG Rhythm: ST (EKG NOTED) - Diagnosis Discharge Problem: Substance abuse - Discharge Plan Disposition: 07 AGAINST MEDICAL ADVICE Condition: Stable - Follow ups/Referrals Follow ups/Referrals: NFD,None [Primary Care Provider] - 3 days - Instructions
[2017-06-13 13:48] LABS: BASOPHILS # (AUTO) 0.1 X10^3/uL (0.0-0.1); BASOPHILS % (AUTO) 0.9 % (0.2-1.0); EOSINOPHILS % (AUTO) 0.3 % (0.9-2.9); HEMOGLOBIN 15.5 g/dL (12.0-16.0); LYMPHOCYTES # (AUTO) 1.7 X10^3/uL (1.3-2.9); LYMPHOCYTES % (AUTO) 21.2 % (21.0-51.0); MEAN CORPUSCULAR HEMOGLOBIN 30.6 pg (27.0-34.0); MEAN CORPUSCULAR HGB CONC 34.4 g/dL (33.0-35.0); MEAN PLATELET VOLUME 7.9 fL (7.4-11.0); MONOCYTES # (AUTO) 0.7 x10^3/uL (0.3-0.8); MONOCYTES % (AUTO) 8.9 % (0.0-13.0); NEUTROPHILS # (AUTO) 5.4 x10^3/uL (2.2-4.8); NEUTROPHILS % (AUTO) 68.7 % (42.0-75.0); PLATELET COUNT 342 X10^3/uL (150.0-450.0); RED BLOOD COUNT 5.05 X10^6/uL (3.5-5.4); RED CELL DISTRIBUTION WIDTH 13.1 % (11.6-16.5); WHITE BLOOD COUNT 7.9 X10^3/uL (3.6-10.0)
[2017-06-13 13:55] LABS: ALANINE AMINOTRANSFERASE 25 Units/L (12-78); ALKALINE PHOSPHATASE 65 Units/L (46-116); ASPARTATE AMINO TRANSFERASE 17 Units/L (15-37); BLOOD ALCOHOL < 3 mg/dL (0-19.9); BLOOD UREA NITROGEN 8 mg/dL (7-18); CALCIUM 8.9 mg/dL (8.5-10.1); CARBON DIOXIDE 27.1 mmol/L (21-32); CHLORIDE 104 mmol/L (98-107); COR NA(FOR HYPERGLY) 142 mmol/L (136-145); CREATININE 0.91 mg/dL (0.55-1.02); SODIUM 141 mmol/L (136-145); eGFR BLACK RACES > 60 (>60); eGFR NON BLACK RACES > 60 (>60)
[2017-06-13] MEDS ORDERED: NS 1000 ML 1,000 ML IV ONE (14:01)
[2017-06-13] MEDS ORDERED: NS 1000 ML 1,000 ML ONE (14:06)
[2017-06-13] MEDS ORDERED: FLEXERIL TAB 10 MG PO PRN (16:07)
[2017-06-13] MEDS ORDERED: PEPCID TAB 20 MG PO ONE (16:10)
[2017-06-13] MEDS ORDERED: PEPCID TAB 20 MG ONE (16:11)
[2017-06-13] MEDS ORDERED: FLEXERIL TAB 10 MG ONE (16:11)
[2017-06-13] MEDS ORDERED: MICRO K EXTEN CAP 10 MEQ PO ONE ×2 (16:17→16:20)
[2017-06-13 16:59] VITALS: BP 127/82
== END 2017-06-13 18:17 | disposition left against medical advice (07) ==
LOC: ER 12:52
DX: F15.10 Other stimulant abuse, uncomplicated (principal)
CPT/HCPCS: 36415; 80053; 80307; 80320; 85025; 93005; 93010; 96365; 99282; 99285; A4222; G0434; G6038; G6039; G6040

== ENCOUNTER 2017-09-26 12:40 | Emergency (ER) | payer SELFPAY ==
[2017-09-26 12:44] VITALS: BMI 27.4
[2017-09-26 13:24] LABS: BASOPHILS # (AUTO) 0.1 X10^3/uL (0.0-0.1); BASOPHILS % (AUTO) 0.7 % (0.2-1.0); EOSINOPHILS # (AUTO) 0.1 x10^3/uL (0.0-0.2); EOSINOPHILS % (AUTO) 1.7 % (0.9-2.9); HEMATOCRIT 41.8 % (36.0-47.0); HEMOGLOBIN 14.6 g/dL (12.0-16.0); LYMPHOCYTES # (AUTO) 1.4 X10^3/uL (1.3-2.9); LYMPHOCYTES % (AUTO) 19.3 % (21.0-51.0); MEAN CORPUSCULAR HEMOGLOBIN 30.8 pg (27.0-34.0); MEAN CORPUSCULAR HGB CONC 35.1 g/dL (33.0-35.0); MEAN CORPUSCULAR VOLUME 87.8 fL (80.0-100.0); MEAN PLATELET VOLUME 8.2 fL (7.4-11.0); MONOCYTES # (AUTO) 0.5 x10^3/uL (0.3-0.8); MONOCYTES % (AUTO) 6.9 % (0.0-13.0); NEUTROPHILS # (AUTO) 5.3 x10^3/uL (2.2-4.8); NEUTROPHILS % (AUTO) 71.4 % (42.0-75.0); PLATELET COUNT 372 X10^3/uL (150.0-450.0); RED BLOOD COUNT 4.76 X10^6/uL (3.5-5.4); RED CELL DISTRIBUTION WIDTH 12.9 % (11.6-16.5); WHITE BLOOD COUNT 7.4 X10^3/uL (3.6-10.0)
[2017-09-26 13:25] LABS: ALANINE AMINOTRANSFERASE 25 Units/L (12-78); ALBUMIN 3.6 g/dL (3.4-5.0); ALKALINE PHOSPHATASE 63 Units/L (46-116); ASPARTATE AMINO TRANSFERASE 31 Units/L (15-37); BLOOD ALCOHOL < 3 mg/dL (0-19.9); BLOOD UREA NITROGEN 9 mg/dL (7-18); CALCIUM 8.7 mg/dL (8.5-10.1); CHLORIDE 102 mmol/L (98-107); COR NA(FOR HYPERGLY) 139 mmol/L (136-145); CREATININE 1.01 mg/dL (0.55-1.02); SODIUM 138 mmol/L (136-145); TOTAL PROTEIN 7.3 g/dL (6.4-8.2); eGFR BLACK RACES > 60 (>60); eGFR NON BLACK RACES > 60 (>60)
[2017-09-26 13:27] LABS: BILIRUBIN,URINE NEGATIVE (NEGATIVE); BLOOD/HEMOGLOBIN,URINE 1+ (NEGATIVE); GLUCOSE, URINE NEGATIVE (NEGATIVE); KETONES,URINE NEGATIVE (NEGATIVE); LEUKOCYTE ESTERASE ,URINE NEGATIVE (NEGATIVE); NITRITES,URINE NEGATIVE (NEGATIVE); PROTEIN,URINE NEGATIVE (NEGATIVE); UROBILINOGEN,URINE NORMAL (NORMAL)
[2017-09-26] MEDS ORDERED: K-LYTE EFFERVESCENT ONE (13:32)
[2017-09-26 13:33] LABS: SERUM PREGNANCY TEST, QUAL NEGATIVE <10 mIU/mL
[2017-09-26 13:36] LABS: SALICYLATE < 2.8 mg/dL (2.8-20)
[2017-09-26 13:43] LABS: APPEARANCE,URINE CLEAR (CLEAR); COLOR,URINE YELLOW (YELLOW); RBC,URINE RARE /HPF (NEGATIVE)
[2017-09-26 13:44] LABS: BACTERIA,URINE NEGATIVE /HPF (NEGATIVE); SQUAMOUS EPITHELIAL CELL,UR FEW /HPF (NEGATIVE)
[2017-09-27] MEDS ORDERED: MOTRIN TAB 800 MG PO ONE ×4 (06:12→19:05)
[2017-09-27 07:08] LABS: BLOOD UREA NITROGEN 12 mg/dL (7-18); CALCIUM 8.5 mg/dL (8.5-10.1); CARBON DIOXIDE 25.4 mmol/L (21-32); CHLORIDE 105 mmol/L (98-107); COR NA(FOR HYPERGLY) 140 mmol/L (136-145); CREATININE 0.94 mg/dL (0.55-1.02); SODIUM 139 mmol/L (136-145); eGFR BLACK RACES > 60 (>60); eGFR NON BLACK RACES > 60 (>60)
--- NOTE | 2017-09-27 07:43 | DR.GENAD ---
HPI - PCP Primary Care Physician: NFD - Complaint/Symptoms Chief Complaint Doctors Comments: Patient presented to the ED for evaluation of hallucination of visual and auditory manifestation. She would suddenly burst out in screams stating that someone was there but not. Chief Complaint:: PT STATES THAT SHE IS HAVING A MENTAL BREAKDOWN. PT. IS HAVING VISUAL AND AUDITORY HALLUNICATIONS. PT. DENIES BEING HOMOCIDAL OR SUICIDAL. 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 PT UNABLE TO TELL - Family History History of Family Medical Conditions: Yes Family Medical History: Hypertension - Social History Does patient currently use any type of tobacco product: Yes Have you used tobacco products in the last 12 months: Yes Type of Tobacco Use: Cigarettes Does any household member use tobacco: Yes Alcohol Use: None Do you use any recreational Drugs:: Yes Lives With: Family Lives Where: Home - infectious screening In the last 2 months have you had wt loss of >10#?: NO Have you had fever, night sweats or hemotysis?: No Have you traveled outside the country in the last 6 months?: No Isolation: Standard ROS - Review of Systems Eyes: No Symptoms Reported ENTM: No Symptoms Reported Respiratoy: No Symptoms Reported Cardiovascular: No Symptoms Reported Gastrointestinal/Abdominal: No Symptoms Reported Genitourinary: No Symptoms Reported Neurological: No Symptoms Reported Musculoskeletal: No Symptoms Reported Integumentary: No Symptoms Reported Hematologic/Lymphatic: No Symptoms Reported Endocrine: No Symptoms Reported Psychiatric: No Symptoms Reported All Other Systems: Reviewed and Negative PE - Vital Signs Vitals: Temperature 98.6 F Pulse Rate [Right Brachial] 76 Pulse Rate 85 Respiratory Rate 16 Blood Pressure [Left Arm] 116/65 Blood Pressure [Right Arm] 116/73 Blood Pressure 135/89 O2 Sat by Pulse Oximetry 100 - General General Appearance: Anxious - Head Head Exam: Normal Inspection, Atraumatic - Eyes Eye exam: Normal Appearance, PERRL, EOMI - ENT ENT Exam: Normal Exam External Ear Exam: Normal External Inspection TM/Canal Exam: Bilateral Normal Nose Exam: Normal Nose Exam, Sinus Tenderness Mouth Exam: Normal Inspection Throat Exam: Normal Inspection - Neck Neck Exam: Normal Inspection - Chest Chest Inspection: Normal Inspection, Symmetric Chest Wall Rise - Respiratory Respiratory Exam: Normal Lung Sounds Bilat Respiratory Exam: Bilateral Clear to Auscultation - Cardiovascular Cardiovascular Exam: Regular Rate, Normal Rhythm - Abdominal Exam Abdominal Exam: Normal Inspection, Normal Bowel Sounds Abdominal Tenderness: negative: RUQ, RLQ, LUQ, LLQ, Epigastrium, Suprapubic, Diffuse, Mild, Moderate, Severe, Other - Extremities Extremities Exam: Normal Inspection, Full ROM, Tenderness - Back Back Exam: Normal Inspection, Full ROM, Tenderness - Neurologic Neurological Exam: Alert, Oriented X3, CN II-XII Intact - Psychiatric Psychiatric Exam: Agitated, Flat Affect. negative: Suicidal Ideation - Skin Skin Exam: Warm, Dry, Intact Course - Treatment Treatment: Patient was evaluated by Behavior Health direct sales representative ROR - Labs Reviewed Laboratory Results Reviewed?: Yes (low potassium -corrected) Result Diagrams: 09/26/17 12:55 09/27/17 06:45 Laboratory: WBC 7.4 X10^3/uL (3.6-10.0) 09/26/17 12:55 RBC 4.76 X10^6/uL (3.5-5.4) 09/26/17 12:55 Hgb 14.6 g/dL (12.0-16.0) 09/26/17 12:55 Hct 41.8 % (36.0-47.0) 09/26/17 12:55 MCV 87.8 fL (80.0-100.0) 09/26/17 12:55 MCH 30.8 pg (27.0-34.0) 09/26/17 12:55 MCHC 35.1 g/dL (33.0-35.0) H 09/26/17 12:55 RDW 12.9 % (11.6-16.5) 09/26/17 12:55 Plt Count 372 X10^3/uL (150.0-450.0) 09/26/17 12:55 MPV 8.2 fL (7.4-11.0) 09/26/17 12:55 Neut % 71.4 % (42.0-75.0) 09/26/17 12:55 Lymph % 19.3 % (21.0-51.0) L 09/26/17 12:55 [place] % 6.9 % (0.0-13.0) 09/26/17 12:55 Eos % 1.7 % (0.9-2.9) 09/26/17 12:55 Baso % 0.7 % (0.2-1.0) 09/26/17 12:55 Neut # 5.3 x10^3/uL (2.2-4.8) H 09/26/17 12:55 Lymph # 1.4 X10^3/uL (1.3-2.9) 09/26/17 12:55 [place] # 0.5 x10^3/uL (0.3-0.8) 09/26/17 12:55 Eos # 0.1 x10^3/uL (0.0-0.2) 09/26/17 12:55 Baso # 0.1 X10^3/uL (0.0-0.1) 09/26/17 12:55 Absolute Nucleated RBC 0.0 /100WBC 09/26/17 12:55 Sodium 139 mmol/L (136-145) 09/27/17 06:45 Corrected Sodium 140 mmol/L (136-145) 09/27/17 06:45 Potassium 3.2 mmol/L (3.5-5.1) L 09/27/17 06:45 Chloride 105 mmol/L (98-107) 09/27/17 06:45 Carbon Dioxide 25.4 mmol/L (21-32) 09/27/17 06:45 BUN 12 mg/dL (7-18) 09/27/17 06:45 Creatinine 0.94 mg/dL (0.55-1.02) 09/27/17 06:45 Est GFR (MDRD) Af Amer > 60 (>60) 09/27/17 06:45 Est GFR (MDRD) Non-Af > 60 (>60) 09/27/17 06:45 Glucose 157 mg/dL (65-99) H 09/27/17 06:45 Calcium 8.5 mg/dL (8.5-10.1) 09/27/17 06:45 Corrected Calcium TNP 09/26/17 12:55 Total Bilirubin 0.80 mg/dL (0.2-1.0) 09/26/17 12:55 AST 31 Units/L (15-37) 09/26/17 12:55 ALT 25 Units/L (12-78) 09/26/17 12:55 Alkaline Phosphatase 63 Units/L (46-116) 09/26/17 12:55 Total Protein 7.3 g/dL (6.4-8.2) 09/26/17 12:55 Albumin 3.6 g/dL (3.4-5.0) 09/26/17 12:55 Globulin 3.7 g/dL (2.5-4.5) 09/26/17 12:55 Albumin/Globulin Ratio 1.0 Ratio (1.1-2.1) L 09/26/17 12:55 HCG, Qual Negative <10 mIU/mL 09/26/17 12:55 Specimen Type Random urine 09/26/17 12:51 Urine Color Yellow (YELLOW) 09/26/17 12:51 Urine Appearance Clear (CLEAR) 09/26/17 12:51 Urine pH 6.0 (5.0 - 8.0) 09/26/17 12:51 Ur Specific [place] 1.010 (1.000-1.030) 09/26/17 12:51 Urine Protein Negative (NEGATIVE) 09/26/17 12:51 Urine Glucose (UA) Negative (NEGATIVE) 09/26/17 12:51 Urine Ketones Negative (NEGATIVE) 09/26/17 12:51 Urine Occult Blood 1+ (NEGATIVE) 09/26/17 12:51 Urine Nitrite Negative (NEGATIVE) 09/26/17 12:51 Urine Bilirubin Negative (NEGATIVE) 09/26/17 12:51 Urine Urobilinogen Normal (NORMAL) 09/26/17 12:51 Ur Leukocyte Esterase Negative (NEGATIVE) 09/26/17 12:51 Urine RBC Rare /HPF (NEGATIVE) 09/26/17 12:51 Urine WBC Rare /HPF (NEGATIVE) 09/26/17 12:51 Ur Squamous Epith Cells Few /HPF (NEGATIVE) 09/26/17 12:51 Urine Bacteria Negative /HPF (NEGATIVE) 09/26/17 12:51 Ur Culture Indicated? No/not indicated 09/26/17 12:51 Salicylates < 2.8 mg/dL (2.8-20) L 09/26/17 12:55 Urine Opiates Screen Negative (NEG=<300) 09/26/17 12:51 Urine Methadone Screen Negative (NEG=<300) 09/26/17 12:51 Acetaminophen 0.0 ug/mL (10-30) L 09/26/17 12:55 Ur Barbiturates Screen Negative (NEG=<200) 09/26/17 12:51 Ur Phencyclidine Scrn Negative (NEG=<25) 09/26/17 12:51 Ur Amphetamines Screen Negative (NEG=<1000) 09/26/17 12:51 U Benzodiazepines Scrn Negative (NEG=<200) 09/26/17 12:51 Urine Cocaine Screen Negative (NEG=<300) 09/26/17 12:51 U Marijuana (THC) Screen Negative (NEG=<50) 09/26/17 12:51 Ethyl Alcohol mg/dL < 3 mg/dL (0-19.9) 09/26/17 12:55 - Diagnosis Discharge Problem: Mental health disorder, Auditory hallucinations - Discharge Plan Condition: Stable - Follow ups/Referrals Follow ups/Referrals: NFD,None [Primary Care Provider] - 3 days - Instructions
[2017-09-27] MEDS ORDERED: K-DUR TAB 20 MEQ PO ONE (07:46)
[2017-09-27] MEDS ORDERED: K-LYTE EFFERVESCENT PO ONE (13:28)
[2017-09-27] MEDS ORDERED: VISTARIL PO ONE ×2 (22:29→22:32)
[2017-09-28 07:21] VITALS: BP 109/84
== END 2017-09-28 09:51 ==
LOC: ER 12:50
DX: F99 Mental disorder, not otherwise specified (principal); R44.0 Auditory hallucinations
CPT/HCPCS: 36415; 80048; 80053; 80307; 80320; 81001; 84703; 85025; 93005; 93010; 99282; 99285; Q0177; G0434; G6038; G6039; G6040

== ENCOUNTER 2017-10-12 10:07 | Emergency (ER) | payer SELFPAY ==
[2017-10-12 10:13] VITALS: BMI 20.3
[2017-10-12 10:21] VITALS: BP 150/101
[2017-10-12 10:42] LABS: BASOPHILS # (AUTO) 0.1 X10^3/uL (0.0-0.1); BASOPHILS % (AUTO) 2.3 % (0.2-1.0); EOSINOPHILS # (AUTO) 0.1 x10^3/uL (0.0-0.2); EOSINOPHILS % (AUTO) 2.4 % (0.9-2.9); HEMATOCRIT 48.9 % (36.0-47.0); LYMPHOCYTES # (AUTO) 1.4 X10^3/uL (1.3-2.9); MEAN CORPUSCULAR HEMOGLOBIN 31.2 pg (27.0-34.0); MEAN CORPUSCULAR HGB CONC 34.6 g/dL (33.0-35.0); MEAN PLATELET VOLUME 8.3 fL (7.4-11.0); MONOCYTES # (AUTO) 0.8 x10^3/uL (0.3-0.8); MONOCYTES % (AUTO) 16.1 % (0.0-13.0); NEUTROPHILS # (AUTO) 2.8 x10^3/uL (2.2-4.8); NEUTROPHILS % (AUTO) 53.2 % (42.0-75.0); PLATELET COUNT 281 X10^3/uL (150.0-450.0); RED BLOOD COUNT 5.44 X10^6/uL (3.5-5.4); RED CELL DISTRIBUTION WIDTH 12.9 % (11.6-16.5); WHITE BLOOD COUNT 5.2 X10^3/uL (3.6-10.0)
[2017-10-12 10:53] LABS: ALANINE AMINOTRANSFERASE 12 Units/L (12-78); ALBUMIN 3.9 g/dL (3.4-5.0); ALKALINE PHOSPHATASE 84 Units/L (46-116); ASPARTATE AMINO TRANSFERASE 12 Units/L (15-37); BLOOD ALCOHOL < 3 mg/dL (0-19.9); BLOOD UREA NITROGEN 7 mg/dL (7-18); CALCIUM 9.1 mg/dL (8.5-10.1); CARBON DIOXIDE 26.4 mmol/L (21-32); CHLORIDE 102 mmol/L (98-107); COR NA(FOR HYPERGLY) 139 mmol/L (136-145); CREATININE 1.15 mg/dL (0.55-1.02); SODIUM 138 mmol/L (136-145); eGFR BLACK RACES > 60 (>60); eGFR NON BLACK RACES 55 (>60)
[2017-10-12 11:01] LABS: SERUM PREGNANCY TEST, QUAL NEGATIVE <10 mIU/mL
[2017-10-12 11:06] LABS: SALICYLATE < 2.8 mg/dL (2.8-20)
[2017-10-12 11:07] LABS: ACETAMINOPHEN < 0.0 ug/mL (10-30)
--- NOTE | 2017-10-12 11:17 | DR.AMS ---
HPI - Time Seen Time seen: 10:20 - PCP Primary Care Physician: DAYNA - HPI Comment HPI Comment: She voiced suicidal ideation - Complaint Cheif Complaint Doctors Comments: As she was released from senior care, she voiced suicidal ideation. She has noo specific plan. She sates that she has ran out of her Depakote and she had stopped taking Risperdal as it made her feel bad. Chief Complaint:: [employer] CALLED AND PT TO COME TO ER TO BE EVALUATED PT TOLD STAFF THAT SHE WANTED KILL HER SELF..BR PT IS VERY PARANOID AND THINKS PEOPLE ARE LAUGHING AT HER, Self Treatment fo Chief Complaint: PT D/C FROM [facility] A W[facility] AGO ...PT DOES AGREE THAT SHE IS SUICIAL AND SHE WANTS TO KNOW IF ANYONE WANTS TO KILL HER PT IS VERY TEARFUL , NO 1013 SINGNED ON PT AT THIS TIME . 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 - Family History History of Family Medical Conditions: Yes Family Medical History: Hypertension - Social History Does patient currently use any type of tobacco product: Yes Have you used tobacco products in the last 12 months: Yes Type of Tobacco Use: Cigarettes Does any household member use tobacco: No Alcohol Use: None Do you use any recreational Drugs:: No Lives Where: Homeless - infectious screening In the last 2 months have you had wt loss of >10#?: NO Have you had fever, night sweats or hemotysis?: No Have you traveled outside the country in the last 6 months?: No Isolation: Standard ROS - Review of Systems Constitutional: No Symptoms Reported Eyes: No Symptoms Reported ENTM: No Symptoms Reported Respiratoy: No Symptoms Reported Cardiovascular: No Symptoms Reported Gastrointestinal/Abdominal: No Symptoms Reported Genitourinary: No Symptoms Reported Neurological: No Symptoms Reported Musculoskeletal: No Symptoms Reported Integumentary: No Symptoms Reported Endocrine: No Symptoms Reported Psychiatric: Suicidal PE - Vitals Vital Signs: Temp Pulse Resp BP BP BP Pulse Ox 10/12/17 10:08 96.3 F L 115 H 20 150/101 99 09/28/17 06:00 109/84 109/84 09/26/17 18:35 116/73 - General Limitations: Language Barrier General Appearance: Alert, In No Apparent Distress - Head Head Exam: Normal Inspection - Eyes Eye exam: Normal Appearance, PERRL, EOMI - ENT ENT Exam: Normal Exam, Normal Oropharynx, Normal External Ear Exam, Mucous Membranes Moist Mouth Exam: Normal Inspection Throat Exam: Normal Inspection - Neck Neck Exam: Normal Inspection, Full ROM, Trachea Midline - Chest Chest Inspection: Normal Inspection, Symmetric Chest Wall Rise - Respiratory Respiratory Exam: Normal Lung Sounds Bilat - Cardiovascular Cardiovascular Exam: Regular Rate, Normal Rhythm, +S1, +S2 - Abdominal Exam Abdominal Exam: Normal Inspection, Normal Bowel Sounds, Soft - Extremities Extremities Exam: Normal Inspection, Full ROM - Back Back Exam: Normal Inspection - Neurological Neurological Exam: Alert, Oriented X3, CN II-XII Intact Speech: Fluid Speech - Psychological Psychiatric Exam: Normal Affect - Skin Skin Exam: Warm, Dry, Intact ROR - Labs Reviewed Result Diagrams: 10/12/17 10:30 10/12/17 10:30 Laboratory: WBC 5.2 X10^3/uL (3.6-10.0) 10/12/17 10:30 RBC 5.44 X10^6/uL (3.5-5.4) H 10/12/17 10:30 Hgb 17.0 g/dL (12.0-16.0) H 10/12/17 10:30 Hct 48.9 % (36.0-47.0) H 10/12/17 10:30 MCV 90.0 fL (80.0-100.0) 10/12/17 10:30 MCH 31.2 pg (27.0-34.0) 10/12/17 10:30 MCHC 34.6 g/dL (33.0-35.0) 10/12/17 10:30 RDW 12.9 % (11.6-16.5) 10/12/17 10:30 Plt Count 281 X10^3/uL (150.0-450.0) 10/12/17 10:30 MPV 8.3 fL (7.4-11.0) 10/12/17 10:30 Neut % 53.2 % (42.0-75.0) 10/12/17 10:30 Lymph % 26.0 % (21.0-51.0) 10/12/17 10:30 [place] % 16.1 % (0.0-13.0) H 10/12/17 10:30 Eos % 2.4 % (0.9-2.9) 10/12/17 10:30 Baso % 2.3 % (0.2-1.0) H 10/12/17 10:30 Neut # 2.8 x10^3/uL (2.2-4.8) 10/12/17 10:30 Lymph # 1.4 X10^3/uL (1.3-2.9) 10/12/17 10:30 [place] # 0.8 x10^3/uL (0.3-0.8) 10/12/17 10:30 Eos # 0.1 x10^3/uL (0.0-0.2) 10/12/17 10:30 Baso # 0.1 X10^3/uL (0.0-0.1) 10/12/17 10:30 Absolute Nucleated RBC 0.0 /100WBC 10/12/17 10:30 Sodium 138 mmol/L (136-145) 10/12/17 10:30 Corrected Sodium 139 mmol/L (136-145) 10/12/17 10:30 Potassium 3.6 mmol/L (3.5-5.1) 10/12/17 10:30 Chloride 102 mmol/L (98-107) 10/12/17 10:30 Carbon Dioxide 26.4 mmol/L (21-32) 10/12/17 10:30 BUN 7 mg/dL (7-18) 10/12/17 10:30 Creatinine 1.15 mg/dL (0.55-1.02) H 10/12/17 10:30 Est GFR (MDRD) Af Amer > 60 (>60) 10/12/17 10:30 Est GFR (MDRD) Non-Af 55 (>60) L 10/12/17 10:30 Glucose 127 mg/dL (65-99) H 10/12/17 10:30 Calcium 9.1 mg/dL (8.5-10.1) 10/12/17 10:30 Corrected Calcium TNP 10/12/17 10:30 Total Bilirubin 0.40 mg/dL (0.2-1.0) 10/12/17 10:30 AST 12 Units/L (15-37) L 10/12/17 10:30 ALT 12 Units/L (12-78) 10/12/17 10:30 Alkaline Phosphatase 84 Units/L (46-116) 10/12/17 10:30 Total Protein 8.0 g/dL (6.4-8.2) 10/12/17 10:30 Albumin 3.9 g/dL (3.4-5.0) 10/12/17 10:30 Globulin 4.1 g/dL (2.5-4.5) 10/12/17 10:30 Albumin/Globulin Ratio 1.0 Ratio (1.1-2.1) L 10/12/17 10:30 HCG, Qual Negative <10 mIU/mL 10/12/17 10:30 Specimen Type Clean catch urine 10/12/17 11:20 Urine Color Yellow (YELLOW) 10/12/17 11:20 Urine Appearance Cloudy (CLEAR) 10/12/17 11:20 Urine pH 6.0 (5.0 - 8.0) 10/12/17 11:20 Ur Specific [place] 1.025 (1.000-1.030) 10/12/17 11:20 Urine Protein 2+ (NEGATIVE) 10/12/17 11:20 Urine Glucose (UA) Negative (NEGATIVE) 10/12/17 11:20 Urine Ketones 3+ (NEGATIVE) 10/12/17 11:20 Urine Occult Blood 4+ (NEGATIVE) 10/12/17 11:20 Urine Nitrite Positive (NEGATIVE) 10/12/17 11:20 Urine Bilirubin Negative (NEGATIVE) 10/12/17 11:20 Urine Urobilinogen 1+ (NORMAL) 10/12/17 11:20 Ur Leukocyte Esterase 3+ (NEGATIVE) 10/12/17 11:20 Urine RBC 20-25 /HPF (NEGATIVE) 10/12/17 11:20 Urine WBC 25-50 /HPF (NEGATIVE) 10/12/17 11:20 Ur Squamous Epith Cells Few /HPF (NEGATIVE) 10/12/17 11:20 Calcium Oxalate Crystal Few /HPF (NEGATIVE) 10/12/17 11:20 Urine Bacteria 4+ /HPF (NEGATIVE) 10/12/17 11:20 Ur Culture Indicated? Yes/culture set up 10/12/17 11:20 Salicylates < 2.8 mg/dL (2.8-20) L 10/12/17 10:30 Urine Opiates Screen Negative (NEG=<300) 10/12/17 11:20 Urine Methadone Screen Negative (NEG=<300) 10/12/17 11:20 Acetaminophen < 0.0 ug/mL (10-30) L 10/12/17 10:30 Ur Barbiturates Screen Negative (NEG=<200) 10/12/17 11:20 Ur Phencyclidine Scrn Negative (NEG=<25) 10/12/17 11:20 Ur Amphetamines Screen Positive (NEG=<1000) A 10/12/17 11:20 U Benzodiazepines Scrn Positive (NEG=<200) A 10/12/17 11:20 Urine Cocaine Screen Negative (NEG=<300) 10/12/17 11:20 U Marijuana (THC) Screen Positive (NEG=<50) A 10/12/17 11:20 Ethyl Alcohol mg/dL < 3 mg/dL (0-19.9) 10/12/17 10:30 - Diagnosis Discharge Problem: UTI (urinary tract infection), Suicidal ideation - Discharge Plan Condition: Stable - Follow ups/Referrals Follow ups/Referrals: NFD,None [Primary Care Provider] - 3 days - Instructions
[2017-10-12 11:30] LABS: BILIRUBIN,URINE NEGATIVE (NEGATIVE); BLOOD/HEMOGLOBIN,URINE 4+ (NEGATIVE); GLUCOSE, URINE NEGATIVE (NEGATIVE); KETONES,URINE 3+ (NEGATIVE); LEUKOCYTE ESTERASE ,URINE 3+ (NEGATIVE); NITRITES,URINE POSITIVE (NEGATIVE); PROTEIN,URINE 2+ (NEGATIVE); UROBILINOGEN,URINE 1+ (NORMAL)
[2017-10-12 11:48] LABS: APPEARANCE,URINE CLOUDY (CLEAR); BACTERIA,URINE 4+ /HPF (NEGATIVE); CALCIUM OXALATE CRYSTALS,UR FEW /HPF (NEGATIVE); COLOR,URINE YELLOW (YELLOW); RBC,URINE 20-25 /HPF (NEGATIVE); SQUAMOUS EPITHELIAL CELL,UR FEW /HPF (NEGATIVE)
[2017-10-12] MEDS ORDERED: LEVAQUIN PREMIX IV 500 MG 500 MG/100 ML BAG IV ONE ×2 (12:49→12:52)
[2017-10-12] MEDS ORDERED: NS 1000 ML 1,000 ML IV ONE (12:49)
[2017-10-12] MEDS ORDERED: NS 1000 ML 1,000 ML ONE (12:51)
[2017-10-12] MEDS ORDERED: LEVAQUIN TAB 500 MG ONE (14:28)
[2017-10-12] MEDS ORDERED: LEVAQUIN TAB 500 MG PO SCH (15:00)
== END 2017-10-12 18:15 | disposition short-term general hospital (02) ==
LOC: ER 10:09
DX: R45.851 Suicidal ideations (principal); N39.0 Urinary tract infection, site not specified; B96.29 Other Escherichia coli [E. coli] as the cause of diseases classified elsewhere
CPT/HCPCS: 36415; 80053; 80307; 81001; 84703; 85025; 87086; 87088; 87186; 93005; 93010; 96365; 96374; 99282; 99285; A4222; G0434; G6038; G6039; G6040; J1956

== ENCOUNTER 2017-11-03 17:28 | Emergency (ER) | payer SELFPAY ==
[2017-11-03 17:59] VITALS: BMI 22.6
[2017-11-03 18:32] LABS: BASOPHILS % (AUTO) 0.8 % (0.2-1.0); EOSINOPHILS # (AUTO) 0.1 x10^3/uL (0.0-0.2); EOSINOPHILS % (AUTO) 2.6 % (0.9-2.9); HEMATOCRIT 43.4 % (36.0-47.0); HEMOGLOBIN 15.1 g/dL (12.0-16.0); LYMPHOCYTES # (AUTO) 1.3 X10^3/uL (1.3-2.9); LYMPHOCYTES % (AUTO) 25.2 % (21.0-51.0); MEAN CORPUSCULAR HEMOGLOBIN 30.7 pg (27.0-34.0); MEAN CORPUSCULAR HGB CONC 34.7 g/dL (33.0-35.0); MEAN CORPUSCULAR VOLUME 88.4 fL (80.0-100.0); MONOCYTES # (AUTO) 0.5 x10^3/uL (0.3-0.8); MONOCYTES % (AUTO) 9.2 % (0.0-13.0); NEUTROPHILS # (AUTO) 3.1 x10^3/uL (2.2-4.8); NEUTROPHILS % (AUTO) 62.2 % (42.0-75.0); PLATELET COUNT 286 X10^3/uL (150.0-450.0); RED BLOOD COUNT 4.91 X10^6/uL (3.5-5.4)
[2017-11-03 18:38] LABS: BLOOD UREA NITROGEN 10 mg/dL (7-18); CALCIUM 8.4 mg/dL (8.5-10.1); CARBON DIOXIDE 27.7 mmol/L (21-32); CHLORIDE 104 mmol/L (98-107); CREATININE 0.85 mg/dL (0.55-1.02); SODIUM 142 mmol/L (136-145); eGFR BLACK RACES > 60 (>60); eGFR NON BLACK RACES > 60 (>60)
[2017-11-03 18:39] LABS: BILIRUBIN,URINE NEGATIVE (NEGATIVE); BLOOD/HEMOGLOBIN,URINE 2+ (NEGATIVE); GLUCOSE, URINE NEGATIVE (NEGATIVE); KETONES,URINE 1+ (NEGATIVE); LEUKOCYTE ESTERASE ,URINE 2+ (NEGATIVE); NITRITES,URINE POSITIVE (NEGATIVE); PH,URINE 6.5 (5.0 - 8.0); PROTEIN,URINE 2+ (NEGATIVE); UROBILINOGEN,URINE 1+ (NORMAL)
[2017-11-03 18:43] LABS: ALANINE AMINOTRANSFERASE 21 Units/L (12-78); ALBUMIN 3.8 g/dL (3.4-5.0); ALKALINE PHOSPHATASE 70 Units/L (46-116); ASPARTATE AMINO TRANSFERASE 17 Units/L (15-37); TOTAL PROTEIN 7.5 g/dL (6.4-8.2)
[2017-11-03 18:53] LABS: SALICYLATE < 2.8 mg/dL (2.8-20)
[2017-11-03 19:00] LABS: SERUM PREGNANCY TEST, QUAL NEGATIVE <10 mIU/mL
[2017-11-03] MEDS ORDERED: K-LYTE EFFERVESCENT PO ONE (19:01)
[2017-11-03 19:02] LABS: BLOOD ALCOHOL < 3 mg/dL (0-19.9)
[2017-11-03 19:03] LABS: BACTERIA,URINE 1+ /HPF (NEGATIVE); SQUAMOUS EPITHELIAL CELL,UR MANY /HPF (NEGATIVE)
[2017-11-03 19:04] LABS: AMORPHOUS SEDIMENT,UR 2+ /HPF (NEGATIVE); CALCIUM OXALATE CRYSTALS,UR FEW /HPF (NEGATIVE); HYALINE CASTS, URINE RARE /LPF (NEGATIVE); MUCUS,URINE MODERATE /HPF (NEGATIVE)
[2017-11-03 19:05] LABS: APPEARANCE,URINE HAZY (CLEAR); COLOR,URINE AMBER (YELLOW)
--- NOTE | 2017-11-03 19:05 | DR.GENAD ---
HPI - PCP Primary Care Physician: nfd - Complaint/Symptoms Chief Complaint Doctors Comments: Patient states that she tried to kill herself by taking tegretol. She thought her boyfriend was trying to kill her. She does not know how much she took. She also states that she took other drugs THC,meth and cocaine..She states that this is not the first episode of drug ingestion or trying to harm herself. She had two childres and unemployed. Chief Complaint:: Patient brought in via EMS for mental health evaulation. EMS stated patient was laying out in the yard upon their arrival. Patient stated "I took my boyfriend's, Dimas Mcgee's, tegretol yesterday I don't know how much because I wanted to kill myself. I feel like my boyfriend was being mean toward my family." Patient denied being sexually or physicially abused by Dimas Mcgee, [place]. Patient admits to snorting Meth today about 1 hour prior to EMs being disbatched out. 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 - Family History History of Family Medical Conditions: Yes Family Medical History: Hypertension - Social History Does patient currently use any type of tobacco product: Yes Have you used tobacco products in the last 12 months: Yes Type of Tobacco Use: Cigarettes Alcohol Use: Rarely Do you use any recreational Drugs:: Yes (meth, thc) - infectious screening In the last 2 months have you had wt loss of >10#?: NO Have you had fever, night sweats or hemotysis?: No Have you traveled outside the country in the last 6 months?: No Isolation: Standard ROS - Review of Systems Eyes: No Symptoms Reported ENTM: No Symptoms Reported Respiratoy: No Symptoms Reported Cardiovascular: No Symptoms Reported Gastrointestinal/Abdominal: No Symptoms Reported, Abdominal Pain Neurological: No Symptoms Reported Musculoskeletal: No Symptoms Reported Integumentary: No Symptoms Reported Hematologic/Lymphatic: No Symptoms Reported Endocrine: No Symptoms Reported Psychiatric: No Symptoms Reported All Other Systems: Reviewed and Negative PE - Vital Signs Vitals: Temperature 97.2 F Pulse Rate 78 Respiratory Rate 18 Blood Pressure [Left Arm] 109/84 Blood Pressure [Right Arm] 116/73 Blood Pressure 108/69 O2 Sat by Pulse Oximetry 97 - General Limitations: No Limitations General Appearance: Alert, In No Apparent Distress - Head Head Exam: Normal Inspection, Atraumatic - Eyes Eye exam: Normal Appearance, PERRL - ENT ENT Exam: Normal Exam External Ear Exam: Normal External Inspection TM/Canal Exam: Bilateral Normal Nose Exam: Normal Nose Exam Mouth Exam: Normal Inspection Throat Exam: Normal Inspection - Neck Neck Exam: Normal Inspection - Chest Chest Inspection: Normal Inspection, Symmetric Chest Wall Rise - Respiratory Respiratory Exam: Normal Lung Sounds Bilat Respiratory Exam: Bilateral Clear to Auscultation - Cardiovascular Cardiovascular Exam: Regular Rate, Normal Rhythm - Abdominal Exam Abdominal Exam: Normal Inspection Abdominal Tenderness: negative: RUQ, RLQ, LUQ, LLQ, Epigastrium, Suprapubic, Diffuse, Mild, Moderate, Severe, Other - Extremities Extremities Exam: Normal Inspection, Full ROM - Back Back Exam: Normal Inspection, Full ROM - Neurologic Neurological Exam: Alert, Oriented X3, CN II-XII Intact - Psychiatric Psychiatric Exam: Flat Affect - Skin Skin Exam: Warm, Dry, Other (slinght abrasion on nasal bridge.) ROR - Labs Reviewed Result Diagrams: 11/03/17 18:16 11/03/17 18:16 Laboratory: WBC 5.0 X10^3/uL (3.6-10.0) 11/03/17 18:16 RBC 4.91 X10^6/uL (3.5-5.4) 11/03/17 18:16 Hgb 15.1 g/dL (12.0-16.0) 11/03/17 18:16 Hct 43.4 % (36.0-47.0) 11/03/17 18:16 MCV 88.4 fL (80.0-100.0) 11/03/17 18:16 MCH 30.7 pg (27.0-34.0) 11/03/17 18:16 MCHC 34.7 g/dL (33.0-35.0) 11/03/17 18:16 RDW 13.0 % (11.6-16.5) 11/03/17 18:16 Plt Count 286 X10^3/uL (150.0-450.0) 11/03/17 18:16 MPV 8.0 fL (7.4-11.0) 11/03/17 18:16 Neut % 62.2 % (42.0-75.0) 11/03/17 18:16 Lymph % 25.2 % (21.0-51.0) 11/03/17 18:16 [place] % 9.2 % (0.0-13.0) 11/03/17 18:16 Eos % 2.6 % (0.9-2.9) 11/03/17 18:16 Baso % 0.8 % (0.2-1.0) 11/03/17 18:16 Neut # 3.1 x10^3/uL (2.2-4.8) 11/03/17 18:16 Lymph # 1.3 X10^3/uL (1.3-2.9) 11/03/17 18:16 [place] # 0.5 x10^3/uL (0.3-0.8) 11/03/17 18:16 Eos # 0.1 x10^3/uL (0.0-0.2) 11/03/17 18:16 Baso # 0.0 X10^3/uL (0.0-0.1) 11/03/17 18:16 Absolute Nucleated RBC 0.1 /100WBC 11/03/17 18:16 Sodium 142 mmol/L (136-145) 11/03/17 18:16 Corrected Sodium TNP 11/03/17 18:16 Potassium 3.0 mmol/L (3.5-5.1) L* 11/03/17 18:16 Chloride 104 mmol/L (98-107) 11/03/17 18:16 Carbon Dioxide 27.7 mmol/L (21-32) 11/03/17 18:16 BUN 10 mg/dL (7-18) 11/03/17 18:16 Creatinine 0.85 mg/dL (0.55-1.02) 11/03/17 18:16 Est GFR (MDRD) Af Amer > 60 (>60) 11/03/17 18:16 Est GFR (MDRD) Non-Af > 60 (>60) 11/03/17 18:16 Glucose 104 mg/dL (65-99) H 11/03/17 18:16 Calcium 8.4 mg/dL (8.5-10.1) L 11/03/17 18:16 Corrected Calcium TNP 11/03/17 18:16 Total Bilirubin 0.50 mg/dL (0.2-1.0) 11/03/17 18:16 AST 17 Units/L (15-37) 11/03/17 18:16 ALT 21 Units/L (12-78) 11/03/17 18:16 Alkaline Phosphatase 70 Units/L (46-116) 11/03/17 18:16 Total Protein 7.5 g/dL (6.4-8.2) 11/03/17 18:16 Albumin 3.8 g/dL (3.4-5.0) 11/03/17 18:16 Globulin 3.7 g/dL (2.5-4.5) 11/03/17 18:16 Albumin/Globulin Ratio 1.0 Ratio (1.1-2.1) L 11/03/17 18:16 HCG, Qual Negative <10 mIU/mL 11/03/17 18:16 Salicylates < 2.8 mg/dL (2.8-20) L 11/03/17 18:16 Urine Opiates Screen Negative (NEG=<300) 11/03/17 18:07 Urine Methadone Screen Negative (NEG=<300) 11/03/17 18:07 Acetaminophen 0.0 ug/mL (10-30) L 11/03/17 18:16 Ur Barbiturates Screen Negative (NEG=<200) 11/03/17 18:07 Ur Phencyclidine Scrn Negative (NEG=<25) 11/03/17 18:07 Ur Amphetamines Screen Positive (NEG=<1000) A 11/03/17 18:07 U Benzodiazepines Scrn Negative (NEG=<200) 11/03/17 18:07 Urine Cocaine Screen Positive (NEG=<300) A 11/03/17 18:07 U Marijuana (THC) Screen Positive (NEG=<50) A 11/03/17 18:07 - Diagnosis Discharge Problem: Suicidal behavior Qualifiers: Attempted self-injury: with attempted self-injury Qualified Code(s): T14.91XA - Suicide attempt, initial encounter - Discharge Plan Condition: Stable - Follow ups/Referrals Follow ups/Referrals: NFD,None [Primary Care Provider] - 3 days - Instructions
[2017-11-03] MEDS ORDERED: K-LYTE EFFERVESCENT ONE (19:06)
[2017-11-03] MEDS ORDERED: ROCEPHIN VIAL 1 GM IM ONE (20:24)
[2017-11-03] MEDS ORDERED: ROCEPHIN VIAL 1 GM ONE (20:31)
[2017-11-04] MEDS ORDERED: NS 1000 ML 1,000 ML ONE (02:27)
[2017-11-04] MEDS ORDERED: NS 1000 ML 1,000 ML IV ONE (02:33)
[2017-11-04 03:14] VITALS: BP 111/59
== END 2017-11-04 07:59 ==
LOC: ER 17:28
DX: T14.91XA Suicide attempt, initial encounter (principal)
CPT/HCPCS: 36415; 80053; 80307; 81001; 84703; 85025; 93005; 93010; 96365; 96372; 96374; 99282; 99285; G0434; G6038; G6039; G6040; J0696